=== PATIENT | female | born 1995 | race Caucasian/White ===

== ENCOUNTER → 2019-07-13 11:09 | Outpatient (CLI) | payer OTHER, SELFPAY ==
--- NOTE | 2019-07-13 11:12 | DI.US.S_ITS ---
PROCEDURE: US OB >= 14 WEEKS FETUS INDICATIONS: ANATOMY OUTSIDE/PRIOR DATING DATA: Last menstrual period (LMP): 02/17/19. LMP-based estimated date of delivery (NNAMDI): 11/24/19 First dating scan (date and location): 07/13/19. Estimated date of delivery (NNAMDI) from first dating scan: 12/18/19. TECHNIQUE: Real-time scanning was performed of the fetus, with image documentation and biometric measurements. COMPARISON: None. FINDINGS: General: A single living intrauterine gestation is present. Presentation: Vertex. Placenta: Placental position is anterior, without previa. Amniotic fluid index: 10.5 cm, normal range is 5-24 cm. heart rate: 144 beats per minute. Maternal cervical canal: 3.1 cm long. Normal lower limit is 2.5 cm. biometrics: Biparietal diameter: 21 weeks 1 day Head circumference: 21 weeks 0 days Abdominal circumference: 21 weeks 4 days Femur length: 21 weeks 1 day Estimated gestational age from initial scan: not applicable. Composite gestational age from present scan: 21 weeks 2 days Estimated weight and percentile: 417 g; 70 percentile Measurement variability for biometric dating: +/- 7 days from 14 weeks to 15 weeks 6 days gestation, +/- 10 days from 16 weeks to 21 weeks 6 days gestation, +/- 2 weeks from 22 weeks to 27 weeks 6 days gestation, +/- 3 weeks for 28 weeks gestation or later. weight reference: 4500 g or EFW >90/95% is considered macrosomia or large for gestational age. EFW <10% is small for gestational age. EFW 5% or less is considered intra-uterine growth restriction. Anatomic survey: Neuro: Ventricles are non-dilated at less than 10 mm. Cisterna magna is normal at 3-11 mm. Cerebellum is normal in size and morphology. Nuchal skin fold: Normal at less than 6 mm between 14-21 weeks gestational age. Face: Suboptimally visualized. Spine: No evidence for spina bifida. Heart: 4-chambered heart is present, with normal ventricular outflow tracts. Diaphragm: Diaphragm is intact. Stomach: Left-sided stomach is present. Kidneys: No hydronephrosis. Normal is less than 5 mm in 2nd trimester, less than 7 mm in 3rd trimester. Cord: 3-vessel cord has orthotopic insertion. Bladder: Normal in size. Extremities: All 4 extremities identified. IMPRESSION: 1. Single living IUP with mean composite gestational age of 21 weeks 2 days corresponding to ultrasound NNAMDI of 12/01/19. 2. face not well visualized; otherwise normal anatomy. Followup recommended. Dictated by: Angel GRECO Interpreted: Hal Christianson MD on 07/13/2019 at 12:05 Approved by: Hal Christianson M.D. on 07/13/2019 at 15:56
== END ==
PROVIDERS: Referring Provider Obstetrics & Gynecology; Visit Provider Obstetrics & Gynecology
DX: Z34.82 Encounter for supervision of other normal pregnancy, second trimester (principal); Z3A.21 21 weeks gestation of pregnancy
CPT/HCPCS: 76811

== ENCOUNTER → 2019-07-27 09:19 | Outpatient (CLI) | payer OTHER, SELFPAY ==
--- NOTE | 2019-07-27 09:21 | DI.US.S_ITS ---
PROCEDURE: US OB FOLLOW UP INDICATIONS: F/U FACE OUTSIDE/PRIOR DATING DATA: Last menstrual period (LMP): 02/17/19. LMP-based estimated date of delivery (NNAMDI): 11/24/19. First dating scan (date and location): 07/13/19. Estimated date of delivery (NNAMDI) from first dating scan: 11/21/19. TECHNIQUE: Real-time scanning was performed of the fetus, with image documentation. Endovaginal scanning: Not performed COMPARISON: None. FINDINGS: A single living intrauterine gestation is present. Presentation: Vertex Placenta: Placental position is anterior, without previa. Amniotic fluid index: 17.4 cm, normal range is 5-24 cm. heart rate: 149 beats per minute. Maternal cervical canal: 3.3 cm long. Normal lower limit is 2.5 cm. Estimated gestational age from initial scan: 23 weeks 2 days. face, profile, nose/lips are visualized and is within normal limits. IMPRESSION: Single live intrauterine with fetus in vertex presentation. Normal mammogram medically. face/profile/nose/lips are visualized and are within normal limits. Dictated by: Ke Oshea M.D. on 07/27/2019 at 10:00 Approved by: Ke Oshea M.D. on 07/27/2019 at 10:02
== END ==
PROVIDERS: Referring Provider Obstetrics & Gynecology; Visit Provider Obstetrics & Gynecology
DX: Z36.2 Encounter for other antenatal screening follow-up (principal); Z3A.23 23 weeks gestation of pregnancy
CPT/HCPCS: 76816

== ENCOUNTER → 2019-08-31 08:51 | Outpatient (CLI) | payer OTHER, SELFPAY ==
[2019-08-31 11:00] LABS: Add Manual Diff / Slide Review NO; Basophils Absolute Auto 0 /uL (0-100); Basophils Percent Auto 0.4 % (0-2); Eosinophils Absolute Auto 200 /uL (0-450); Eosinophils Percent Auto 1.7 % (2-4); Hematocrit 35.7 % (36-46); Hemoglobin 12.1 g/dL (12.0-16.0); Lymphocytes Absolute Auto 1600 /uL (1100-4500); Lymphocytes Percent Auto 15.3 % (25-40); Mean Corpuscular HGB Conc 33.9 % (30-36); Mean Corpuscular Hemoglobin 31.4 PG (26-34); Mean Corpuscular Volume 92.5 fL (80-100); Monocytes Absolute Auto 500 /uL (0-900); Monocytes Percent Auto 5.1 % (3-14); Neutrophils Absolute Auto 7900 /uL (1500-7000); Neutrophils Percent Auto 77.5 % (50-75); Platelet Count 239 X10^3/uL (150-400); Red Blood Cell Count 3.86 X10^6/uL (4.0-5.2); Red Cell Distribution Width 13.1 % (11.6-14.8); White Blood Cell Count 10.2 X10^3/uL (4.5-11.0)
[2019-08-31 11:24] LABS: Creatinine Urine Random 43.2 mg/dL; Protein (Total) Urine Random 11 mg/dL (0-12); Protein Creatinine Ratio Urine 0.25 GRAM/24H
[2019-08-31 11:31] LABS: Aspartate Aminotransferase 20 IU/L (14-36); BUN Creatinine Ratio 13.5 (6-22); Blood Urea Nitrogen 7 mg/dL (7-17); Estimated Glomerular Filt Rate > 60.0 mL/min (>60); GTT (PREG) 1 Hour PP 50gm Dose 128 mg/dL (76-139); Uric Acid 4.9 mg/dL (2.5-6.2)
== END ==
PROVIDERS: Referring Provider Obstetrics & Gynecology; Visit Provider Obstetrics & Gynecology
DX: Z34.02 Encounter for supervision of normal first pregnancy, second trimester (principal); Z3A.26 26 weeks gestation of pregnancy
CPT/HCPCS: 82570; 82950; 84156; 84450; 84550; 85025

== ENCOUNTER → 2019-10-21 14:01 | Outpatient (CLI) | payer OTHER, SELFPAY ==
[2019-10-22 10:14] LABS: Strep Grp B PCR NEG for Grp B Strep
== END ==
PROVIDERS: Visit Provider Obstetrics & Gynecology
DX: Z34.03 Encounter for supervision of normal first pregnancy, third trimester (principal); Z3A.35 35 weeks gestation of pregnancy
CPT/HCPCS: 87653

== ENCOUNTER → 2019-10-28 10:41 | Outpatient (CLI) | payer OTHER, SELFPAY ==
[2019-10-28 12:36] LABS: Aspartate Aminotransferase 23 IU/L (14-36); BUN Creatinine Ratio 14.5 (6-22); Blood Urea Nitrogen 8 mg/dL (7-17); Estimated Glomerular Filt Rate > 60.0 mL/min (>60); Uric Acid 5.2 mg/dL (2.5-6.2)
[2019-10-28 12:40] LABS: Creatinine Urine Random 45.9 mg/dL; Protein (Total) Urine Random 11 mg/dL (0-12); Protein Creatinine Ratio Urine 0.23 GRAM/24H
[2019-10-28 12:46] LABS: Add Manual Diff / Slide Review NO; Basophils Absolute Auto 0 /uL (0-100); Basophils Percent Auto 0.3 % (0-2); Eosinophils Absolute Auto 200 /uL (0-450); Eosinophils Percent Auto 2.3 % (2-4); Hematocrit 36.9 % (36-46); Hemoglobin 12.4 g/dL (12.0-16.0); Lymphocytes Absolute Auto 1800 /uL (1100-4500); Mean Corpuscular HGB Conc 33.6 % (30-36); Mean Corpuscular Hemoglobin 30.7 PG (26-34); Mean Corpuscular Volume 91.4 fL (80-100); Monocytes Absolute Auto 600 /uL (0-900); Monocytes Percent Auto 6.5 % (3-14); Neutrophils Absolute Auto 7200 /uL (1500-7000); Neutrophils Percent Auto 72.9 % (50-75); Platelet Count 255 X10^3/uL (150-400); Red Blood Cell Count 4.04 X10^6/uL (4.0-5.2); Red Cell Distribution Width 13.9 % (11.6-14.8); White Blood Cell Count 9.9 X10^3/uL (4.5-11.0)
== END ==
PROVIDERS: Referring Provider Obstetrics & Gynecology; Visit Provider Obstetrics & Gynecology
DX: Z34.90 Encounter for supervision of normal pregnancy, unspecified, unspecified trimester (principal)
CPT/HCPCS: 36415; 82570; 84156; 84450; 84550; 85025

== ENCOUNTER 2019-11-04 12:21 | Outpatient (CLI) | payer OTHER, SELFPAY ==
[2019-11-04 13:16] LABS: Add Manual Diff / Slide Review NO; Basophils Absolute Auto 100 /uL (0-100); Basophils Percent Auto 0.5 % (0-2); Eosinophils Absolute Auto 200 /uL (0-450); Eosinophils Percent Auto 1.8 % (2-4); Hematocrit 33.7 % (36-46); Hemoglobin 11.7 g/dL (12.0-16.0); Lymphocytes Absolute Auto 1700 /uL (1100-4500); Lymphocytes Percent Auto 17.9 % (25-40); Mean Corpuscular HGB Conc 34.7 % (30-36); Mean Corpuscular Hemoglobin 31.5 PG (26-34); Mean Corpuscular Volume 90.6 fL (80-100); Monocytes Absolute Auto 600 /uL (0-900); Monocytes Percent Auto 6.4 % (3-14); Neutrophils Absolute Auto 6900 /uL (1500-7000); Neutrophils Percent Auto 73.4 % (50-75); Platelet Count 238 X10^3/uL (150-400); Red Blood Cell Count 3.72 X10^6/uL (4.0-5.2); Red Cell Distribution Width 13.3 % (11.6-14.8); White Blood Cell Count 9.4 X10^3/uL (4.5-11.0)
--- NOTE | 2019-11-04 13:22 | P.TNLD_ITS ---
Visit Information Visit Information Date of evaluation: 11/04/19 Primary OB Provider: Tayler Devine Reason for Evaluation: Yes non-stress test Comments/Additional reasons for admission: This patient is a 23yo @37+0 presenting for NST, PIH labs and monitoring after elevated BPs in clinic. Patient has had high BPs in clinic at prior visits that normalized on repeat, reports no PIH symptoms, and reports normotension at home, though in the past week these have beein more 120s-130s than 110s-120s. Discussed with patient in clinic gHTN vs PEC diagnosis. Vital Signs Vital Signs: 119-123/66-76, HR 87-95, T 36.3C [facility] Surgical History (Updated 06/29/19 @ 13:16 by Yue Garcia, LILIA) [place] teeth removed (Acute ~2011) Family History (Updated 06/29/19 @ 13:20 by Yue Garcia RN) Father Hypertension Myocardial infarction Mother No problems noted. Grandfather Pancreatic adenoma Cancer Grandmother No problems noted. Grandfather No problems noted. Grandmother No problems noted. 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: Yes (Aware) special ryder needs: No Smoking Status: Never smoker second hand exposure: No alcohol intake: former (pre- : social) substance use type: does not use Objective Labs Result Diagrams: 11/04/19 13:05 11/04/19 13:05 Labs: Laboratory Results - last 24 hr 11/04/19 13:05 WBC 9.4 RBC 3.72 L Hgb 11.7 L Hct 33.7 L MCV 90.6 MCH 31.5 MCHC 34.7 RDW 13.3 Plt Count 238 Neut % (Auto) 73.4 Lymph % (Auto) 17.9 L [place] % (Auto) 6.4 Eos % (Auto) 1.8 L Baso % (Auto) 0.5 Neut # (Auto) 6900 Lymph # (Auto) 1700 [place] # (Auto) 600 Eos # (Auto) 200 Baso # (Auto) 100 Evaluation Evaluation Baseline heart rate: 140 Variability: Moderate (11-25) monitor accelerations: Present monitor decelerations: Absent Uterine Contraction Intensity: Mild Category of Tracing: I Laboratory results: Laboratory Tests 11/04/19 13:05 WBC 9.4 RBC 3.72 L Hgb 11.7 L Hct 33.7 L MCV 90.6 MCH 31.5 MCHC 34.7 RDW 13.3 Plt Count 238 Neut % (Auto) 73.4 Lymph % (Auto) 17.9 L [place] % (Auto) 6.4 Eos % (Auto) 1.8 L Baso % (Auto) 0.5 Neut # (Auto) 6900 Lymph # (Auto) 1700 [place] # (Auto) 600 Eos # (Auto) 200 Baso # (Auto) 100 Diagnosis, Plan/Disposition Plan/Disposition Plan: This patient was normotensive in L&D, had normal PIH bloodwork, and had reassuring status. As urine test was significantly delayed and patient had negative urine dip in clinic, patient was discharged home with close BP monitoring, precautions, and plans to call patient with unexpectedly elevated urine protein. Urine P/C ratio 0.7 and multiple messages left with patient to return to L&D for BP monitoring and discussion of delivery. OB Disposition: home
[2019-11-04 13:24] LABS: Alanine Aminotransferase 14 IU/L (<35); Albumin 3.4 g/dL (3.5-5.0); Albumin Globulin Ratio 1.1 (1.0-2.8); Alkaline Phosphatase 232 U/L (38-126); Aspartate Aminotransferase 22 IU/L (14-36); BUN Creatinine Ratio 15.4 (6-22); Bilirubin Total 0.3 mg/dL (0.2-1.3); Blood Urea Nitrogen 8 mg/dL (7-17); Calcium 8.9 mg/dL (8.4-10.2); Carbon Dioxide 23 mmol/L (22-32); Chloride 105 mmol/L (98-107); Estimated Glomerular Filt Rate > 60.0 mL/min (>60); Globulin 3.2 g/dL (1.7-4.1); Glucose 69 mg/dL (70-100); HEMOLYSIS < 15 (0-50); Lactate Dehydrogenase 413 U/L (313-618); Potassium 3.7 mmol/L (3.4-5.1); Sodium 134 mmol/L (137-145); Total Protein 6.6 g/dL (6.3-8.2); Uric Acid 4.9 mg/dL (2.5-6.2)
[2019-11-04 14:27] LABS: Creatinine Urine Random 17.1 mg/dL; Protein (Total) Urine Random 12 mg/dL (0-12)
== END 2019-11-04 13:55 | disposition home or self-care (01) ==
LOC: LABOR 13:23 → OB 11-07 11:00
PROVIDERS: Referring Provider Obstetrics & Gynecology; Visit Provider Obstetrics & Gynecology
DX: O26.893 Other specified pregnancy related conditions, third trimester (principal); R03.0 Elevated blood-pressure reading, without diagnosis of hypertension; Z3A.37 37 weeks gestation of pregnancy
CPT/HCPCS: 36415; 59025; 80053; 82570; 83615; 84156; 84550; 85025; G0378; G0379

== ENCOUNTER 2019-11-05 12:45 | Outpatient (CLI) | payer OTHER, SELFPAY ==
[2019-11-05 13:41] LABS: Add Manual Diff / Slide Review NO; Basophils Absolute Auto 100 /uL (0-100); Basophils Percent Auto 0.5 % (0-2); Eosinophils Absolute Auto 200 /uL (0-450); Eosinophils Percent Auto 1.6 % (2-4); Hematocrit 34.6 % (36-46); Hemoglobin 11.7 g/dL (12.0-16.0); Lymphocytes Absolute Auto 1900 /uL (1100-4500); Mean Corpuscular HGB Conc 33.9 % (30-36); Mean Corpuscular Hemoglobin 30.5 PG (26-34); Mean Corpuscular Volume 90.1 fL (80-100); Monocytes Absolute Auto 700 /uL (0-900); Neutrophils Absolute Auto 8500 /uL (1500-7000); Neutrophils Percent Auto 74.9 % (50-75); Platelet Count 247 X10^3/uL (150-400); Red Blood Cell Count 3.83 X10^6/uL (4.0-5.2); Red Cell Distribution Width 13.6 % (11.6-14.8); White Blood Cell Count 11.3 X10^3/uL (4.5-11.0)
--- NOTE | 2019-11-05 13:45 | PM.OBTRLD ---
Visit Information Visit Information Date of evaluation: 11/05/19 Primary OB Provider: Tayler Devine Reason for Evaluation: Yes non-stress test Comments/Additional reasons for admission: This patient is a 23yo @37+1 with a diagnosis of preeclampsia without severe features, presenting for BP check, repeat labs, and evaluation. She reports feeling well today with no headaches, visual changes, RUQ pain, malaise, nausea, vomiting, decreased movement, contractions, vaginal bleeding, loss of fluid, or any other complaints. She reports minimal leg swelling since her last evaluation, and no hand and face swelling. Vital Signs Vital Signs: BPs 123-135/72-80, HR 90s, afebrile [facility] Surgical History [place] teeth removed (Acute ~2011) Family History Father Hypertension Myocardial infarction Mother No problems noted. Grandfather Pancreatic adenoma Cancer Grandmother No problems noted. Grandfather No problems noted. Grandmother No problems noted. 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: Yes (Aware) special ryder needs: No Smoking Status: Never smoker second hand exposure: No alcohol intake: former (pre- : social) substance use type: does not use Review of Systems Constitutional Constitutional: Reports system reviewed and no additional complaints, except as documented Cardiovascular Cardiovascular: Reports system reviewed and no additional complaints, except as documented Respiratory Respiratory: Reports system reviewed and no additional complaints, except as documented Gastrointestinal Gastrointestinal: Reports system reviewed and no additional complaints, except as documented Genitourinary Genitourinary: Reports system reviewed and no additional complaints, except as documented Neurologic Neurologic: Reports system reviewed and no additional complaints, except as documented Hematologic/Lymphatic Hematologic/Lymphatic: Reports system reviewed and no additional complaints, except as documented Exam Const General: cooperative, healthy appearing, comfortable and well developed Nutritional Appearance: average body habitus Orientation: alert, awake and oriented x3 Resp Effort & Inspection: normal respiratory effort Auscultation: clear to auscultation bilaterally Cardio Rate: regular rate Rhythm: regular rhythm GI Palpation: soft and No tender External Female Exam: normal external appearance Extrem General: normal to inspection and no pedal edema Objective Labs Result Diagrams: 11/05/19 13:24 11/05/19 13:24 Evaluation Evaluation Baseline heart rate: 130 Variability: Moderate (11-25) monitor accelerations: Present monitor decelerations: Absent Contraction Frequency (minutes): 3 Category of Tracing: I Cervical dilation (cm): 3 Cervical effacement (%): 80 station: -2 Diagnosis, Plan/Disposition Plan/Disposition Plan: This patient is normotensive today on L&D and 120s/80s at home, though she is in the upper end of her range. Her labs are stable, and she is asymptomatic and otherwise well appearing with reassuring testing. We discussed that she meets diagnostic criteria for preeclampsia without severe features, as she has had two blood pressures over 140/90 over 2 separate visits and newly elevated urine protein. We discussed that the recommendation with this diagnosis is for induction after 37 weeks, and she is 37+1. However, coronavirus related illness has meant that the labor and delivery unit has acutely very low staffing, making inductions more fraught with potential for lack of staff to respond to intolerance of labor in a timely fashion. Given this, we discussed that our options today are induction today with potential for unsafe conditions, vs. discharge with close home BP and symptom monitoring and plan for induction of labor within 2 days. Given the patient's overall evaluation and current conditions on the labor floor, I recommended this option. We discussed the risk of worsening preeclampsia and precautionary symptoms, and the patient and her partner vocalized understanding. We also discussed labor precautions given her favorable cervical exam. A covid19 nasal swab was collected given that the patient will be induced within 72 hours. All options were discussed with the patient, and they were encouraged to ask questions, which were answered. The patient and her partner were encouraged to call the call center line or come in with any new symptoms, questions, or concerns, and will come directly to the hospital if they are uncertain what to do. OB Disposition: home
[2019-11-05 13:54] LABS: Aspartate Aminotransferase 25 IU/L (14-36); Blood Urea Nitrogen 8 mg/dL (7-17); Estimated Glomerular Filt Rate > 60.0 mL/min (>60); Uric Acid 5.7 mg/dL (2.5-6.2)
[2019-11-05 14:31] LABS: Creatinine Urine Random 20.7 mg/dL; Protein (Total) Urine Random 13 mg/dL (0-12); Protein Creatinine Ratio Urine 0.62 GRAM/24H
[2019-11-05 15:18] LABS: COVID19 -Nasal RAPID Negative (Negative)
== END 2019-11-05 14:10 | disposition home or self-care (01) ==
LOC: LABOR 14:58 → OB 11-07 11:00
PROVIDERS: Referring Provider Obstetrics & Gynecology; Visit Provider Obstetrics & Gynecology
DX: O14.03 Mild to moderate pre-eclampsia, third trimester (principal); Z3A.37 37 weeks gestation of pregnancy
CPT/HCPCS: 59025; 76815; 82570; 84156; 84450; 84550; 85025; 87635; G0378; G0379

== ENCOUNTER 2019-11-07 16:02 | Outpatient (CLI) | payer OTHER, SELFPAY ==
[2019-11-07 16:59] LABS: Add Manual Diff / Slide Review NO; Basophils Absolute Auto 100 /uL (0-100); Basophils Percent Auto 1.3 % (0-2); Eosinophils Absolute Auto 200 /uL (0-450); Eosinophils Percent Auto 1.9 % (2-4); Hematocrit 35.4 % (36-46); Hemoglobin 12.1 g/dL (12.0-16.0); Lymphocytes Absolute Auto 2200 /uL (1100-4500); Lymphocytes Percent Auto 21.1 % (25-40); Mean Corpuscular HGB Conc 34.1 % (30-36); Mean Corpuscular Hemoglobin 30.9 PG (26-34); Mean Corpuscular Volume 90.6 fL (80-100); Monocytes Absolute Auto 800 /uL (0-900); Monocytes Percent Auto 7.2 % (3-14); Neutrophils Absolute Auto 7200 /uL (1500-7000); Neutrophils Percent Auto 68.5 % (50-75); Platelet Count 255 X10^3/uL (150-400); Red Blood Cell Count 3.91 X10^6/uL (4.0-5.2); Red Cell Distribution Width 13.6 % (11.6-14.8); White Blood Cell Count 10.5 X10^3/uL (4.5-11.0)
[2019-11-07 17:15] LABS: Aspartate Aminotransferase 22 IU/L (14-36); BUN Creatinine Ratio 9.5 (6-22); Blood Urea Nitrogen 6 mg/dL (7-17); Estimated Glomerular Filt Rate > 60.0 mL/min (>60); Uric Acid 5.4 mg/dL (2.5-6.2)
--- NOTE | 2019-11-07 17:27 | PM.OBTRLD ---
Visit Information Visit Information Date of evaluation: 11/07/19 Primary OB Provider: Tayler Devine Reason for Evaluation: Yes non-stress test Comments/Additional reasons for admission: This patient is a 23yo @37+3 with preeclampsia without severe features, presenting for repeat labs, BP monitoring, and testing in anticipation of an induction in 12 hours, when conditions on the labor floor allow. She reports feeling well with no GARZA, visual changes, chest pain, RUQ pain, contractions, decreased movement, or any other complaints. Vital Signs Vital Signs: 115-134/58-81, HR 80-92 [facility] Surgical History [place] teeth removed (Acute ~2011) Family History Father Hypertension Myocardial infarction Mother No problems noted. Grandfather Pancreatic adenoma Cancer Grandmother No problems noted. Grandfather No problems noted. Grandmother No problems noted. 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: Yes (Aware) special ryder needs: No Smoking Status: Never smoker second hand exposure: No alcohol intake: former (pre- : social) substance use type: does not use Review of Systems Constitutional Constitutional: Reports system reviewed and no additional complaints, except as documented Cardiovascular Cardiovascular: Reports system reviewed and no additional complaints, except as documented Respiratory Respiratory: Reports system reviewed and no additional complaints, except as documented Gastrointestinal Gastrointestinal: Reports system reviewed and no additional complaints, except as documented Genitourinary Genitourinary: Reports system reviewed and no additional complaints, except as documented Musculoskeletal Musculoskeletal: Reports system reviewed and no additional complaints, except as documented Neurologic Neurologic: Reports system reviewed and no additional complaints, except as documented Exam Const General: cooperative, healthy appearing, comfortable and acute distress GI Palpation: soft and No tender Objective Labs Result Diagrams: 11/07/19 16:43 11/07/19 16:43 Labs: Laboratory Results - last 24 hr 11/07/19 11/07/19 16:43 16:43 WBC 10.5 RBC 3.91 L Hgb 12.1 Hct 35.4 L MCV 90.6 MCH 30.9 MCHC 34.1 RDW 13.6 Plt Count 255 Neut % (Auto) 68.5 Lymph % (Auto) 21.1 L [place] % (Auto) 7.2 Eos % (Auto) 1.9 L Baso % (Auto) 1.3 Neut # (Auto) 7200 H Lymph # (Auto) 2200 [place] # (Auto) 800 Eos # (Auto) 200 Baso # (Auto) 100 BUN 6 L Creatinine 0.63 Estimated GFR > 60.0 BUN/Creatinine Ratio 9.5 Uric Acid 5.4 AST 22 Evaluation Evaluation Baseline heart rate: 140 Variability: Moderate (11-25) monitor accelerations: Present monitor decelerations: Absent Contraction Frequency (minutes): 3 Category of Tracing: I Laboratory results: Laboratory Tests 11/07/19 11/07/19 16:43 16:43 WBC 10.5 RBC 3.91 L Hgb 12.1 Hct 35.4 L MCV 90.6 MCH 30.9 MCHC 34.1 RDW 13.6 Plt Count 255 Neut % (Auto) 68.5 Lymph % (Auto) 21.1 L [place] % (Auto) 7.2 Eos % (Auto) 1.9 L Baso % (Auto) 1.3 Neut # (Auto) 7200 H Lymph # (Auto) 2200 [place] # (Auto) 800 Eos # (Auto) 200 Baso # (Auto) 100 BUN 6 L Creatinine 0.63 Estimated GFR > 60.0 BUN/Creatinine Ratio 9.5 Uric Acid 5.4 AST 22 Diagnosis, Plan/Disposition Plan/Disposition Plan: This patient is a 23yo @37+3 with preeclampsia without severe features, admitted for maternal and monitoring. The labor floor and nursing staff in the setting of covid are such that the patient is scheduled for induction with pitocin tomorrow AM, as she has a favorable cervix. She is largely normotensive with reassuring status and stable labs, and risks and benefits along with precautions for return were discussed. All questions were answered. OB Disposition: home
== END 2019-11-07 17:30 | disposition home or self-care (01) ==
LOC: LABOR 16:23 → OB 11-08 10:01
PROVIDERS: Referring Provider Obstetrics & Gynecology; Visit Provider Obstetrics & Gynecology
DX: O14.03 Mild to moderate pre-eclampsia, third trimester (principal); Z3A.37 37 weeks gestation of pregnancy
CPT/HCPCS: 36415; 59025; 76815; 84450; 84550; 85025; G0378; G0379

== ENCOUNTER 2019-11-08 07:26 | Inpatient (IN) | payer OTHER, SELFPAY ==
--- NOTE | 2019-11-08 08:03 | P.HPOB_ITS ---
OB HPI Date/Time Date of admission: 11/08/19 Date Patient Seen: 11/08/19 Time Patient Seen: 07:30 History of Present Condition Chief complaint: observation of labor : 1 Para: 0 Estimated Date of Delivery: 11/25/19 Estimated Gestational Age (weeks): 37 Narrative: Vandana Bell is a 23 year old @37+4 with preeclampsia without severe features, presenting for induction of labor with a favorable cervix. She denies headache, visual changes, chest pain, trouble breathing, RUQ pain, decreased movement, VB, or LOF. She reports intermittent contractions, though not consistent. She was diagnosed based on multiple BPs over 140/90 though she is largely normotensive, and newly elevated urine protein without any other lab abnormalities. Her had been otherwise uncomplicated, though she transferred care at [address] [facility] [place]. She denies any contributory medical or surgical history or PIH risk factors, though she recently reported that her mother had PIH with each of her four pregnancies. Indications Indication for induction OB: medical complication History of Present care: good care, number of visits (16) and pounds weight gain (51) Dating criteria: LMP confirmed by 1st trimester US Ultrasounds: normal 1st trimester US and normal mid trimester US Obstetrical complications: preeclampsia Medical complications: none Preadmission Labs Blood type: B (+) positive -: Antibody screen: negative, GBS status: negative, HBsAG: negative, HIV: negative and RPR/VDLR: negative -: Chlamydia screen: not detected and Gonorrhea screen: not detected -: Rubella: immune and Varicella: immune PAP: Normal Sequential screen: declined aneuploidy screening Urine: UC negative 1 hr GTT: 128 Evaluation Evaluation Baseline heart rate: 150 Variability: Average (6-10) monitor accelerations: Present monitor decelerations: Absent Contraction Frequency (minutes): 3 Category of Tracing: I Cervical dilation (cm): 3 Cervical effacement (%): 80 station: -1 PFS Surgical History [place] teeth removed (Acute ~2012) Family History Father Hypertension Myocardial infarction Mother No problems noted. Grandfather Pancreatic adenoma Cancer Grandmother No problems noted. Grandfather No problems noted. Grandmother No problems noted. 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: Yes (Aware) special ryder needs: No Smoking Status: Never smoker second hand exposure: No alcohol intake: former (pre- : social) substance use type: does not use Meds Home Medications and Allergies Home Medications Medication Instructions Recorded Confirmed Type prenat.vits,darrion,vim-[id number] 1 tab PO DAILY 06/28/19 06/28/19 History Allergies Allergy/AdvReac Type Severity Reaction Status Date / Time No Known Drug Allergies Allergy Verified 06/29/19 13:09 Review of Systems Constitutional Constitutional: Reports system reviewed and no additional complaints, except as documented Eyes Eyes: Reports system reviewed and no additional complaints, except as documented Cardiovascular Cardiovascular: Reports system reviewed and no additional complaints, except as documented Respiratory Respiratory: Reports system reviewed and no additional complaints, except as documented Gastrointestinal Gastrointestinal: Reports system reviewed and no additional complaints, except as documented Genitourinary Genitourinary: Reports system reviewed and no additional complaints, except as documented Musculoskeletal Musculoskeletal: Reports system reviewed and no additional complaints, except as documented Neurologic Neurologic: Reports system reviewed and no additional complaints, except as documented Exam Vital Signs (past 8 hours): 128/73, HR 76 Const General: cooperative, healthy appearing and comfortable Resp Effort & Inspection: normal respiratory effort Auscultation: clear to auscultation bilaterally Cardio Rate: regular rate Rhythm: regular rhythm GI Palpation: soft and No tender External Female Exam: normal external appearance Extrem General: normal to inspection Objective Labs Result Diagrams: 11/08/19 08:00 11/08/19 08:00 Assessment and Plan Assessment and Plan Assessment and Plan narrative: This patient presents for induction of labor for preeclampsia without severe features, already 3/80/-1 and clement q3min. Patient will be admitted for repeat PIH labs, pitocin per protocol, and routine intrapartum care. - PIH panel and T&S today - cEFM, toco for now, short bouts of ambulation if status reassuring - anticipate AROM later this AM - Epidural on demand
[2019-11-08 08:15] LABS: Add Manual Diff / Slide Review NO; Basophils Absolute Auto 100 /uL (0-100); Basophils Percent Auto 0.6 % (0-2); Eosinophils Absolute Auto 200 /uL (0-450); Eosinophils Percent Auto 2.6 % (2-4); Hematocrit 35.8 % (36-46); Hemoglobin 12.2 g/dL (12.0-16.0); Lymphocytes Absolute Auto 1600 /uL (1100-4500); Lymphocytes Percent Auto 17.9 % (25-40); Mean Corpuscular HGB Conc 34.1 % (30-36); Mean Corpuscular Hemoglobin 31.1 PG (26-34); Mean Corpuscular Volume 91.1 fL (80-100); Monocytes Absolute Auto 600 /uL (0-900); Monocytes Percent Auto 6.9 % (3-14); Neutrophils Absolute Auto 6400 /uL (1500-7000); Platelet Count 247 X10^3/uL (150-400); Red Blood Cell Count 3.93 X10^6/uL (4.0-5.2); Red Cell Distribution Width 13.9 % (11.6-14.8); White Blood Cell Count 8.9 X10^3/uL (4.5-11.0)
[2019-11-08] MEDS: LACTATED RINGERS 1,000 ML 100 ML IV ×6 (08:21→23:00)
[2019-11-08] MEDS: OXYTOCIN PREMIX 30 UNIT/500 ML PLAST..BAG IV (08:21)
[2019-11-08 08:24] LABS: Aspartate Aminotransferase 23 IU/L (14-36); BUN Creatinine Ratio 12.1 (6-22); Blood Urea Nitrogen 7 mg/dL (7-17); Estimated Glomerular Filt Rate > 60.0 mL/min (>60); Uric Acid 5.4 mg/dL (2.5-6.2)
[2019-11-08 10:03] VITALS: BP 125/68
--- NOTE | 2019-11-08 10:44 | PM.OBPNLAB ---
Date/Time Date Patient Seen: 11/08/19 Time Patient Seen: 10:44 Pain Control Pain control: tolerating well Pelvic Exam Dilation (cm): 3 Effacement (%): 100 station: -1 Amniotic membrane status: Ruptured (AROM, clear) Contractions Pitocin rate (mU/min): 3 Contraction frequency (min): 2 Status status: Category l Heart Rate Baseline: 150 Monitor Accelerations: Absent Monitor Decelerations: Absent Monitor Variability: Moderate Comments: Patient for fluid bolus, previously +accels Assessment and Plan Assessment: induction ongoing Plan: continuous present management
--- NOTE | 2019-11-08 16:45 | PM.OBPNLAB ---
Date/Time Date Patient Seen: 11/08/19 Time Patient Seen: 16:45 Pain Control Pain control: epidural Pelvic Exam Dilation (cm): 10 Effacement (%): 100 station: +1 Amniotic membrane status: Ruptured (AROM, clear) Comments: EFW 7#8 Contractions Pitocin rate (mU/min): 2 Contraction frequency (min): 2 Contraction pattern: Regular Status status: Category l Heart Rate Baseline: 130 Monitor Accelerations: Present Monitor Decelerations: Absent Monitor Variability: Moderate Assessment and Plan Plan: continuous present management Comments: Patient to begin pushing.
--- NOTE | 2019-11-08 18:31 | PM.OBPNLAB ---
Date/Time Date Patient Seen: 11/08/19 Time Patient Seen: 18:31 Pain Control Pain control: epidural Pelvic Exam Dilation (cm): 10 Effacement (%): 100 station: +2 Amniotic membrane status: Ruptured (AROM, clear) Comments: Direct OP presentation, attempts to turn to OA unsuccessful. Contractions Pitocin rate (mU/min): 5 Contraction frequency (min): 5 Contraction pattern: Regular Status Heart Rate Baseline: 130 Monitor Accelerations: Present Monitor Decelerations: Early Monitor Variability: Moderate Assessment and Plan Plan: continuous present management
--- NOTE | 2019-11-08 20:22 | PM.OBPNLAB ---
Date/Time Date Patient Seen: 11/08/19 Time Patient Seen: 20:22 Pain Control Pain control: epidural Pelvic Exam Dilation (cm): 10 Effacement (%): 100 station: +2 Amniotic membrane status: Ruptured (AROM, clear) Contractions Pitocin rate (mU/min): 0 Contraction frequency (min): 3 Contraction pattern: Regular Status status: Category l Heart Rate Baseline: 130 Monitor Accelerations: Present Monitor Decelerations: Absent Comments: cat 2 with minimal variability prior to turning off pitocin, rotating to right side and fluid bolus Assessment and Plan Assessment: active labor Comments: This patient is a 23yo P0 who has been in the second stage of labor for 4 hours with direct OP presentation, and though good maternal effort remains, the patient is fatigued. We discussed the options of vacuum assisted delivery and section. We discussed that the risks of vacuum assisted vaginal delivery are cephalohematoma or subgaleal bleed, increased risk of shoulder dystocia, and increased risk of 3rd or 4th degree perineal tearing. We discussed that if the vacuum assisted delivery does not succeed, we would proceed to primary section, and discussed that the risks of c section in the second stage including damage to bowel and bladder, increased risk of hemorrhage, and increased risk of infection, for which she would receive antibiotics. The patient vocalized understanding of the above, and would like to proceed with vacuum assisted vaginal delivery. The OR crew and anesthesiologist will be called in on standby to assist in the event of emergent section.
--- NOTE | 2019-11-08 21:07 | PM.PREOP ---
Pre-operative Note COVID-19 COVID-19 status: Negative Result date/Date tested (Pos, Neg/Pending): 11/05/19 Interval Note History & Physical reviewed/Exam performed by Physician: Yes Changes to H&P: No
[2019-11-08] MEDS: CEFAZOLIN 2 GM/100 ML FROZ.PIGGY IV (21:25)
--- NOTE | 2019-11-08 21:42 | SUR.OPER ---
Supine on Padded OR bed, head on pillow, safety belt at thigh, arms secured on padded arm boards at <90 degrees abduction. Bump under right buttock. Legs uncrossed with pillow under knees, gel pad to heels, tape over blanket to lower legs.
[2019-11-08] MEDS: AZITHROMYCIN 500 MG in DEXTROSE 5% IN WATER 250 ML IV (22:17)
--- NOTE | 2019-11-08 22:18 | SUR.OPER ---
viable baby boy born at 2145, placenta delivered at 2150, 8/9, weight 6lb 6oz
[2019-11-08 22:39] VITALS: BP 103/51; PULSE 113; RESP 11; TEMP 36.3; O2SAT 100
--- NOTE | 2019-11-08 22:43 | P.OP_ITS ---
Operative Date/Time/Diagnoses Date of procedure: 11/08/19 Time of procedure: 21:30 Pre-op diagnosis: arrest of descent in the second stage Post-op diagnosis: same Procedure & Clinicians Procedure: primary section Same procedure as scheduled: Yes Indications: prolonged second stage, failed vacuum assisted vaginal delivery Surgeon: Tayler Devine Shuttle Truck Driver: Gina Sheth Anesthesia Type: Epidural Operative Notes Findings: Normal uterus, tubes, and ovaries. Male infant in OP, cephalic presentation. Body cord x1. Apgars 8+9, weight 6#7. Closure Type: primary Specimen(s): none sent Applied: catheter Estimated Blood Loss (mL): 800 Procedure in detail: EBL: 800ccs Fluids:2000ccs UOP: 400ccs yellow urine Findings: Male in cephalic presentation, Apgars 8+9, weight 6#7, normal uterus, tubes, ovaries. Procedures: The patient was consented for vacuum assisted vaginal delivery, as discussed in prior labor notes. She was placed in the dorsal lithotomy position in the labor room, the james catheter was removed, and the position was assessed and confirmed to be 2+ station, direct OP presentation, EFW between 7# and 7#8. The maternal pelvis was thought to be adequate. A Kiwi vacuum was placed 2cm anterior to the posterior fontanelle, and suction increased to the green with the first contraction. Traction was applied with each push, with slight movement of the vertex. The Kiwi was deflated until the next contraction, when the same procedure was repeated. No descent was noted with that contraction, and the attempt was aborted and the patient taken for section. The patient was taken to the operating room where epidural anesthesia was bolused. She was prepped and draped in the normal sterile fashion in the dorsal supine position with a leftward tilt, including betadine vaginal prep. A Pfannenstiel skin incision was made with a scalpel and carried through to the underlying layer of fascia. The fascia was incised in the midline and the incision extended laterally with Jacques scissors. The inferior aspect of this incision was grasped with Juany clamps, elevated. and the underlying rectus muscles dissected off bluntly. Attention was then turned to the superior aspect of this incision which, in a similar fashion, was grasped, tented up with the Juany clamps, and the rest rectus muscles dissected off bluntly. The rectus muscles were then in the midline, and the peritoneum identified, tented up, and entered sharply with Metzenbaum scissors. The peritoneal incision was extended superiorly and inferiorly with good visualization of the bladder. The bladder blade was inserted and the vesicao uterine peritoneum identified, grasped with pickups, and entered sharply with the Metzenbaum scissors. This incision was extended laterally, and the bladder flap created digitally. The bladder blade was then reinserted and the lower uterine segment incised in transverse fashion with the scalpel. The uterine incision was bluntly extended laterally. The bladder blade was removed, and the 's head delivered with help from a push up from below. The vertex was impacted into the pubic symphysis, and difficulty delivering required use of a soft cup vacuum placed anterior to the anterior fontanelle, as this was accessible given presentation. The cord was clamped and cut. The nose and mouth were suctioned as needed with a bulb syringe, and the was handed off to awaiting pediatricians. The placenta was then removed spontaneously, and the uterus was exteriorized and cleared of all clots and debris. There was no extension of the hysterotomy. The uterine incision was repaired with 1-0 chromic in a running, locked fashion and a 2nd layer of the same suture was used to obtain excellent hemostasis. The uterus was returned to the abdomen, and the gutters were cleared of all clots and debris. The bladder flap was repaired with 2-0 vicryl in a running fashion. The peritoneum was closed with 3-0 Vicryl, and the fascia reapproximated with 0 Vicryl in a running fashion. The subcutaneous layer was placed with 3 0 Vicryl in an interrupted fashion and the skin was closed with 4-0 biosyn in a running fashion. The patient tolerated the procedure well sponge lap and needle counts were correct x2. 2 g of Ancef and 500mg azithromycin were given at commencement of the case. The patient was taken to the recovery room in stable condition. Complications: none Post-operative Condition: stable Disposition: PACU Plan for aftercare: Routine postoperative care.
[2019-11-08 22:44] VITALS: BP 102/54; PULSE 114; RESP 12; O2SAT 98
--- NOTE | 2019-11-08 22:44 | SUR.PHASEI ---
Dr. Devine and Dr. Michel notified HR 118, Give 1L LR bolus per Dr. Michel. Bolus infusing.
[2019-11-08 22:49] VITALS: BP 107/58; PULSE 112; RESP 11; O2SAT 100
[2019-11-08 22:52] VITALS: BP 102/69; PULSE 119; RESP 12; TEMP 36.2; O2SAT 100
[2019-11-08 23:00] VITALS: BP 115/65; PULSE 119; RESP 14; O2SAT 100
--- NOTE | 2019-11-08 23:00 | SUR.PHASEI ---
Report called to Sheri.
--- NOTE | 2019-11-08 23:12 | SUR.PHASEI ---
Patient transferred to the center. Report given to Sheri. Scant shadow drainage to abdominal dressing. Scant vaginal bleeding. Fundus checked with RN. IV patient, finishing bolus. Patient denied pain. Michaud patent.
[2019-11-09] MEDS: KETOROLAC 30 MG/ML VIAL IV ×3 (04:02→17:11)
[2019-11-09 06:44] LABS: Add Manual Diff / Slide Review NO; Basophils Absolute Auto 100 /uL (0-100); Basophils Percent Auto 0.6 % (0-2); Eosinophils Absolute Auto 100 /uL (0-450); Eosinophils Percent Auto 0.6 % (2-4); Hematocrit 28.2 % (36-46); Hemoglobin 9.5 g/dL (12.0-16.0); Lymphocytes Absolute Auto 1700 /uL (1100-4500); Lymphocytes Percent Auto 14.7 % (25-40); Mean Corpuscular HGB Conc 33.6 % (30-36); Mean Corpuscular Hemoglobin 30.7 PG (26-34); Mean Corpuscular Volume 91.3 fL (80-100); Monocytes Absolute Auto 800 /uL (0-900); Monocytes Percent Auto 7.3 % (3-14); Neutrophils Absolute Auto 8800 /uL (1500-7000); Neutrophils Percent Auto 76.8 % (50-75); Platelet Count 188 X10^3/uL (150-400); Red Blood Cell Count 3.09 X10^6/uL (4.0-5.2); Red Cell Distribution Width 13.9 % (11.6-14.8); White Blood Cell Count 11.4 X10^3/uL (4.5-11.0)
--- NOTE | 2019-11-09 08:32 | P.PNOB_ITS ---
Subjective - OB Subjective Patient comments: no complaints, pain well controlled and tolerating diet baby status: doing well feeding status: exclusively breast feeding Date Patient Seen: 11/09/19 Time Patient Seen: 08:32 Interval history: This patient is a 23yo now P1 POD#1 s/p pCS after 4 hour 2nd stage and failed vacuum assisted vaginal delivery. The patient's immediate pos top tachycardia has resolved, and she reports feeling well this AM with minimal incisional pain, no GARZA, visual changes, chest pain, or trouble breathing, and no other complaints. Tolerated clear liquids last night, about to try regular breakfast. Exam Vital Signs (past 8 hours): 110/60, HR 90s, T 37.1 C Oxygen Delivery Method Room Air Resp Effort & Inspection: normal respiratory effort Auscultation: clear to auscultation bilaterally Cardio Rate: regular rate Rhythm: regular rhythm GI Inspection: distended (soft, tympanic) Palpation: soft and No tender Skin General: no rashes or lesions noted Extrem General: normal to inspection Objective Labs Result Diagrams: 11/09/19 06:20 11/08/19 08:00 Labs: Laboratory Results - last 24 hr 11/08/19 11/09/19 08:00 06:20 WBC 11.4 H RBC 3.09 L Hgb 9.5 L Hct 28.2 L MCV 91.3 MCH 30.7 MCHC 33.6 RDW 13.9 Plt Count 188 Neut % (Auto) 76.8 H Lymph % (Auto) 14.7 L [place] % (Auto) 7.3 Eos % (Auto) 0.6 L Baso % (Auto) 0.6 Neut # (Auto) 8800 H Lymph # (Auto) 1700 [place] # (Auto) 800 Eos # (Auto) 100 Baso # (Auto) 100 Blood Type B Positive Antibody Screen Negative Assessment & Plan Plan day: 1 plan OB: routine postop care Comments: This patient is POD#1 s/p primary section, recovering appropriately though with a large hgb drop. VS are normal this AM, and her lochia is mild, making ongoing blood loss unlikely. She will be for repeat CBC and iron supplementation tomorrow AM, with otherwise normal postoperative care. - VT this AM - Ambulation this AM - Regular diet this AM - Routine postop care Time Spent With Patient Time: Total time spent is greater than 50% in coordination of care (as d ocumented) at patient's floor/unit and/or counseling patient: Time with patient: 15-24 minutes
[2019-11-09] MEDS: DOCUSATE 250 MG CAPSULE PO (08:41)
[2019-11-09] MEDS: ACETAMINOPHEN 325 MG TABLET 650 MG PO (23:16)
[2019-11-09] MEDS: IBUPROFEN 600 MG TABLET PO (23:31)
[2019-11-10] MEDS: ACETAMINOPHEN 325 MG TABLET 650 MG PO ×2 (05:30→11:40)
[2019-11-10] MEDS: IBUPROFEN 600 MG TABLET PO ×2 (05:32→11:40)
[2019-11-10] MEDS: DOCUSATE 250 MG CAPSULE PO (08:17)
--- NOTE | 2019-11-10 09:54 | PM.OBPN.1 ---
Subjective - OB Subjective Patient comments: no complaints and pain well controlled baby status: doing well feeding status: exclusively breast feeding Narrative: This patient is a 23yo now P1 POD#2 s/p pCS in the setting of 2nd stage arrest and failed VAVD after IOL for preeclampsia without severe features. She reports feeling well today with no GARZA, visual changes, SOB, chest pain. She has good pain control, is ambulating, tolerating PO, voiding, passing flatus, and has mild lochia. Date Patient Seen: 11/10/19 Time Patient Seen: 09:50 Exam Vital Signs (past 8 hours): 115-138/62-75, HR 89-95, T 99.3F Oxygen Delivery Method Room Air Const General: cooperative, healthy appearing and comfortable Resp Effort & Inspection: normal respiratory effort Auscultation: clear to auscultation bilaterally Cardio Rate: regular rate Rhythm: regular rhythm GI Inspection: incision (old blood on aquacell) Palpation: soft (non distended) and No tender Extrem General: normal to inspection (trace pedal edema) Objective Labs Result Diagrams: 11/09/19 06:20 11/08/19 08:00 Assessment & Plan Plan day: 2 plan OB: routine postop care and discharge home Comments: This patient is recovering well, meeting postoperative goals with no clinical signs of infection, worsening PIH, or ongoing blood loss. Discussed hgb drop and patient to be discharged on iron supplementation, returns next week for an incision and BP check. Postop, , and PIH precautions discussed. Patient to continue home BPs 2-3x daily, call if elevated. Time Spent With Patient Time: Total time spent is greater than 50% in coordination of care (as documented) at patient's floor/unit and/or counseling patient: Time with patient: 15-24 minutes
--- NOTE | 2019-11-10 10:02 | P.DS_ITS ---
Discharge Providers Provider Date of admission: 11/08/19 07:26 Discharge Date: 11/10/19 Consults: 11/08/19 23:15 Consult to Industrial Engineering Technologist Routine Comment: Discharge provider: Tayler Devine MD Summary Hospital Course Date Patient Seen: 11/10/19 Time Patient Seen: 09:50 Procedures: primary CS, induction of labor for preeclampsia without severe features Hospital Course: This patient presented for induction of labor for preeclampsia without severe features, and was induced with pitocin. She progressed rapidly to fully dilated and underwent a 4 hour second stage, complicated by persistent OP presentation resistant to converting to OA despite attempted vertex rotation and patient position changes. After a failed attempt at VAVD, the patient was taken for primary section. This was otherwise uncomplicated, and her recovery was uneventful, with only occasional elevated BPs and none over 140/90. The patient was discharged with precautions and clinic follow up on POD#2. Peripartum Data Delivery Method: Section complications: none [place] Justin: Gender: Male Disposition of : home Status at Discharge Cognitive/behavioral status at discharge: oriented Functional status at discharge: independent ambulation Time Spent with Patient Time attestation: Total time spent providing and/or coordinating discharge services: Time spent: Greater than 30 minutes Objective Labs Result Diagrams: 11/09/19 06:20 11/08/19 08:00 Exam Vital Signs (past 8 hours): Oxygen Delivery Method Room Air Discharge Plan Discharge Plan Patient Disposition: Home Discharge orders & Medications Prescriptions: New oxycodone 5 mg tablet 5 mg PO Q6H PRN (Reason: pain) Qty: 14 RF: 0 acetaminophen 325 mg tablet 325 mg PO Q6H PRN (Reason: section) Qty: 30 RF: 0 docusate sodium [Colace] 100 mg capsule 100 mg PO BID Qty: 60 RF: 0 ferrous gluconate 324 mg (37.5 mg iron) tablet 324 mg PO DAILY Qty: 30 RF: 0 Continued prenat.vits,darrion,ndl-devi-adsbv Tablet 1 tab PO DAILY RF: 0 Follow up/Referrals: Tayler Devine MD [Physician] - 1 Week (Follow up with Dr. Devine for a 1 week incision check on Thursday11/16/2019 at 9:00 AM at [facility] ) Diet/Activity/Treatments Diet: Regular Activity: Nothing in the vagina for 6 weeks. No lifting more than 10 lbs for 6 weeks. If you have headaches, visual changes, chest pain, SOB, increasing bleeding or abnormal discharge per vagina or incision, nausea, vomiting, fevers, chills, or any other symptoms, call or come to the ED. Visit Report/Discharge Packet Instructions: DI for Visit Report Forms: Patient Portal/API, Stroke Signs & Symptoms Discharges patient from system. Discharge Date/Time: 11/10/19 12:25
[2019-11-10 10:03] VITALS: BP 138/75; PULSE 89; RESP 18; TEMP 37.4
== END 2019-11-10 12:25 | disposition home or self-care (01) | DRG 787 ==
PROVIDERS: Admitting Provider Obstetrics & Gynecology; Referring Provider Obstetrics & Gynecology; Visit Provider Obstetrics & Gynecology
PROC: 10D00Z1 Extraction of Products of Conception, Low, Open Approach (ICD-10-PCS; CPT 59514; principal; 2019-11-08 21:10)
DX: O14.03 Mild to moderate pre-eclampsia, third trimester (principal); D62 Acute posthemorrhagic anemia; Z3A.37 37 weeks gestation of pregnancy; O32.4XX0 Maternal care for high head at term, not applicable or unspecified; Z37.0 Single live birth; O66.5 Attempted application of vacuum extractor and forceps; R00.0 Tachycardia, unspecified
CPT/HCPCS: 01967; 01968; 36415; 59025; 59050; 59514; 59515; 76815; 84450; 84550; 85025; 86850; 86900; 86901; G0379; J0690; J1885; J2274; J2405; J2590; J3010

== ENCOUNTER 2021-12-09 08:46 | Emergency (ER) | payer OTHER, SELFPAY ==
[2021-12-09 08:46] VITALS: BP 165/94; PULSE 117; RESP 20; TEMP 37; O2SAT 99; BMI 20.1
[2021-12-09 08:57] VITALS: BP 165/94; PULSE 121; O2SAT 99
--- NOTE | 2021-12-09 08:58 | ED.PREGNANCY ---
HPI - General Chief complaint: Vaginal Bleeding Stated complaint: 10 wks started bleeding Time Seen by Provider: 12/09/21 08:55 History of Present Illness HPI Narrative: 26-year-old female nonsmoker without chronic medical problems is a at about 10 weeks who presents with vaginal bleeding this morning. She had been in her normal state of health until she felt a wetness and thought maybe she had urinated herself. When she checked she found it was blood and presents here for evaluation. She denies any cramping or pain nor the passage of clots. She is not dizzy nor weak or lightheaded but admittedly feels quite anxious. She denies any chest pain or shortness of breath. She is had no fever or chills. She denies abdominal pain or constipation. She denies the leakage of fluid, dysuria, frequency or urgency. She has yet to see her OB provider for this but plans to see Dr. Chicas locally. Blood type is B+ Related Data Home Medications Medication Instructions Recorded Confirmed prenat.vits,darrion,bkt-rnux-pipln 1 tab PO DAILY 06/28/19 12/02/21 Allergies Allergy/AdvReac Type Severity Reaction Status Date / Time No Known Drug Allergies Allergy Verified 12/02/21 15:39 Review of Systems Review of Systems Narrative: GENERAL: Denies chills, fatigue, malaise, fever, sweats. HEENT: Denies sinus pain, ear pain, sore throat, difficulty swallowing, dizziness. RESPIRATORY: Denies dyspnea, cough, wheezing, hemoptysis, sputum. CARDIOVASCULAR: Denies chest pain, palpitations, orthopnea, edema, GASTROINTESTINAL: See HPI : See HPI MUSCULOSKELETAL: denies weakness, joint pain, or bony pain SKIN: Denies rash, skin lesions, or other NEUROLOGIC: Denies weakness, headache, numbness, change in speech, confusion, seizures, incoordination. PSYCHIATRIC: No concerning psychosocial issues. 12 point review of systems is negative except for those stated above Exam Narrative Exam Narrative: GENERAL: [26] year old patient appears stated age. Well-developed patient, in mild distress. Anxious HEAD: Atraumatic. Normocephalic. EYES: Pupils equal round and reactive. Extraocular motions intact. No scleral icterus. No injection or drainage. ENT: Nose without bleeding, purulent drainage. Throat without erythema, tonsillar hypertrophy or exudate. Airway patent. NECK: Trachea midline. Non tender CARDIOVASCULAR: Tachycardic but regular rhythm without murmurs, gallops, or rubs. RESPIRATORY: Clear to auscultation. Breath sounds equal bilaterally. No wheezes, rales, or rhonchi. GASTROINTESTINAL: Abdomen soft, non-tender, nondistended. EXTREMITIES: No edema or joint tenderness. BACK: Nontender without deformity or crepitance. No flank tenderness. NEURO: AOx3. SKIN: No rash or erythema of visible areas Initial Vital Signs Initial Vital Signs: Vital Signs Temperature 98.6 F 12/09/21 08:46 Pulse Rate 117 H 12/09/21 08:46 Respiratory Rate 20 12/09/21 08:46 Blood Pressure 165/94 H 12/09/21 08:46 Pulse Oximetry 99 12/09/21 08:46 Oxygen Delivery Method 12/09/21 08:46 Course Orders Ordered: ED Orders 12/09/21 08:59 US OB <= 14 weeks fetus Stat 12/09/21 09:04 Basic Metabolic Panel Stat Complete Blood Count AUTO DIFF Stat HCG Quantitative /Beta subunit Stat Consultations Consultation #1: Discussed with on-call Ob (Nateannalisa), recommends close follow-up with Dr. Chicas, pelvic precautions Vital Signs Vital signs: Vital Signs - 8 hr 12/09/21 08:46 Temperature 98.6 F Pulse Rate 117 H Respiratory Rate 20 Blood Pressure 165/94 H Pulse Oximetry 99 Oxygen Delivery Method Room Air MDM - OB/Uterine Contractions Lab Data Result diagrams: 12/09/21 09:04 12/09/21 09:04 Labs: Lab Results 12/09/21 12/09/21 Range/Units 09:04 09:04 WBC 8.8 (4.5-11.0) X10^3/uL RBC 4.50 (4.0-5.2) X10^6/uL Hgb 13.3 (12.0-16.0) g/dL Hct 38.5 (36-46) % MCV 85.6 (80-100) fL MCH 29.5 (26-34) PG MCHC 34.5 (30-36) % RDW 14.2 (11.6-14.8) % Plt Count 284 (150-400) X10^3/uL Neut % (Auto) 73.6 (50-75) % Lymph % (Auto) 18.4 L (25-40) % [place] % (Auto) 6.6 (3-14) % Eos % (Auto) 1.0 L (2-4) % Baso % (Auto) 0.4 (0-2) % Neut # (Auto) 6500 (9270-7441) /uL Lymph # (Auto) 1600 (6603-6660) /uL [place] # (Auto) 600 (0-900) /uL Eos # (Auto) 100 (0-450) /uL Baso # (Auto) 0 (0-100) /uL Sodium 137 (137-145) mmol/L Potassium 3.4 (3.4-5.1) mmol/L Chloride 105 (98-107) mmol/L Carbon Dioxide 20 L (22-32) mmol/L BUN 10 (7-17) mg/dL Creatinine 0.53 (0.52-1.04) mg/dL Estimated GFR > 60 (>60) mL/min BUN/Creatinine Ratio 18.9 (6-22) Glucose 107 H (70-100) mg/dL Calcium 9.1 (8.4-10.2) mg/dL HCG, Quant 11691 mIU/mL Urine Dip Bedside Urine Glucose Negative Bedside Urine Bilirubin - Negative Bedside Urine Ketone - Negative Urine Specific [place] 1.010 Bedside Urine Occult Blood +++ Bedside Urine pH 6 Bedside Urine Protein - Negative Bedside Urine Urobilinogen - Negative Bedside Urine Nitrite - Negative Bedside Urine Leukocytes - Negative Esterase Imaging Data US - OB: Radiologist's Impression: Vandana Boss??26??F??1995 ? Allergy/Adv: No Known Drug Allergies (More??) Close Ultrasound (Signed) Tony Amaya - 12/09/21 Telemetry Strips 11/08/19 Obstetrics Ultrasound (Signed) Ke Oshea - 07/27/19 Ultrasound (Signed) Hal Christianson - 07/13/19 Launch?[address] [address] Ultrasound Report Signed Patient: Vandana Boss MR#: [id number] : 1995 Acct:[id number] Age/Sex: 26 / F Date of Service: 12/09/21 Loc: ED Accession Number: [id number] ?? Procedure: US OB <= 14 weeks fetus Ordering Provider: Bowen De León D.O. PROCEDURE:? US OB <= 14 WEEKS FETUS ? INDICATIONS:? . BLEEDING. 10 WEEKS. ? OUTSIDE/PRIOR DATING DATA:? Last menstrual period (LMP):? 09/26/2021.? LMP-based estimated date of delivery (NNAMDI):? 07/03/2022.? First dating scan (date and location):? 12/02/2021.? Estimated date of delivery (NNAMDI) from first dating scan:? 07/04/2022. The calculations are made using the clinical NNAMDI of 07/03/2022. ? TECHNIQUE:? Real-time scanning was performed of the fetus and maternal pelvic organs, with image documentation.? Endovaginal scanning was also performed to better visualize the fetus and maternal ovaries.? ? COMPARISON:? [facility], , US OB <= 14 WEEKS FETUS, 12/02/2021, 16:02. ? FINDINGS:? ? Embryo:? 3.6 cm, 10 weeks 4 days Heart rate:? 171 bpm ? Small perigestational hemorrhage measuring 5.4 x 3.5 x 1.1 cm.? Yolk sac is present. ? Maternal organs:? Ovaries are within normal limits.? Probable right corpus luteum.? Prominent pelvic vein.? Small nabothian cysts. ? ? IMPRESSION:? 1. Castro living intrauterine at 10 weeks 4 days based on today's crown rump length. ? 2. Small perigestational hemorrhage. ? ? ? We strive to produce accurate, complete, and clear reports of imaging services. To assist us in improving patient care, this report was composed using standard report templates and voice recognition software. Therefore, it may contain abnormal punctuation, insertions and/or omissions. Occasional wrong-word or sound-alike substitutions may occur. Though we review the report and make efforts to correct it, we do recommend that the report be read carefully in proper context to recognize any text inaccuracies. ? ? Dictated by: Tony Amaya M.D. on 12/09/2021 at 9:58 ? ? Approved by: Tony Amaya M.D. on 12/09/2021 at 10:02 ? MDM Narrative Medical decision making narrative: 26-year-old female with stable vitals, normal H&H, Rh positive presents with painless bleeding that has slowed to almost nothing. Ultrasound demonstrates small perigestational hemorrhage with a live intrauterine . Patient has established OB locally and plans to follow up closely. Return precautions discussed and questions answered to her apparent satisfaction Discharge Plan Departure Patient Disposition: Home Clinical Impression: Vaginal bleeding in Instructions: DI for Vaginal Bleeding During Activity Restrictions/Additional Instructions: *You have been diagnosed with [vaginal bleeding in . As we discussed your is in the uterus as expected and there is a moderate associated area of bleeding just adjacent. We will follow this closely, there is no intervention possible at this point in time.] *What to do: *Please continue to take your regular medications as directed. *Please call Dr. Chicas's office today and let them know you were seen in the Emergency Department and that we ask that you be seen in follow up. We will electronically transmit a record of today's note * also as we discussed, please exercise pelvic rest which would include no intercourse, or heavily vigorous or exertional activities *Return to Emergency Department if you should have any new, worsening or concerning symptoms Prescriptions: No Action prenat.vits,darrion,[id number]-gfglm Tablet 1 tab PO DAILY Referrals: Magda Chicas MD [Physician] - Miscellaneous,DoctorMD [Primary Care Provider] - Visit Report Forms: Patient Portal/API
--- NOTE | 2021-12-09 08:59 | DI.US.S_ITS ---
PROCEDURE: US OB <= 14 WEEKS FETUS INDICATIONS: . BLEEDING. 10 WEEKS. OUTSIDE/PRIOR DATING DATA: Last menstrual period (LMP): 09/26/2021. LMP-based estimated date of delivery (NNAMDI): 07/03/2022. First dating scan (date and location): 12/02/2021. Estimated date of delivery (NNAMDI) from first dating scan: 07/04/2022. The calculations are made using the clinical NNAMDI of 07/03/2022. TECHNIQUE: Real-time scanning was performed of the fetus and maternal pelvic organs, with image documentation. Endovaginal scanning was also performed to better visualize the fetus and maternal ovaries. COMPARISON: [facility], , OB <= 14 WEEKS FETUS, 12/02/2021, 16:02. FINDINGS: Embryo: 3.6 cm, 10 weeks 4 days Heart rate: 171 bpm Small perigestational hemorrhage measuring 5.4 x 3.5 x 1.1 cm. Yolk sac is present. Maternal organs: Ovaries are within normal limits. Probable right corpus luteum. Prominent pelvic vein. Small nabothian cysts. IMPRESSION: 1. Castro living intrauterine at 10 weeks 4 days based on today's crown rump length. 2. Small perigestational hemorrhage. We strive to produce accurate, complete, and clear reports of imaging services. To assist us in improving patient care, this report was composed using standard report templates and voice recognition software. Therefore, it may contain abnormal punctuation, insertions and/or omissions. Occasional wrong-word or sound-alike substitutions may occur. Though we review the report and make efforts to correct it, we do recommend that the report be read carefully in proper context to recognize any text inaccuracies. Dictated by: Tony Amaya M.D. on 12/09/2021 at 9:58 Approved by: Tony Amaya M.D. on 12/09/2021 at 10:02
[2021-12-09 09:00] VITALS: PULSE 119; O2SAT 98
[2021-12-09 09:13] LABS: Add Manual Diff / Slide Review NO; Basophils Absolute Auto 0 /uL (0-100); Basophils Percent Auto 0.4 % (0-2); Eosinophils Absolute Auto 100 /uL (0-450); Hematocrit 38.5 % (36-46); Hemoglobin 13.3 g/dL (12.0-16.0); Lymphocytes Absolute Auto 1600 /uL (1100-4500); Lymphocytes Percent Auto 18.4 % (25-40); Mean Corpuscular HGB Conc 34.5 % (30-36); Mean Corpuscular Hemoglobin 29.5 PG (26-34); Mean Corpuscular Volume 85.6 fL (80-100); Monocytes Absolute Auto 600 /uL (0-900); Monocytes Percent Auto 6.6 % (3-14); Neutrophils Absolute Auto 6500 /uL (1500-7000); Neutrophils Percent Auto 73.6 % (50-75); Platelet Count 284 X10^3/uL (150-400); Red Cell Distribution Width 14.2 % (11.6-14.8); White Blood Cell Count 8.8 X10^3/uL (4.5-11.0)
[2021-12-09 09:26] LABS: BUN Creatinine Ratio 18.9 (6-22); Blood Urea Nitrogen 10 mg/dL (7-17); Calcium 9.1 mg/dL (8.4-10.2); Carbon Dioxide 20 mmol/L (22-32); Chloride 105 mmol/L (98-107); Estimated Glomerular Filt Rate > 60 mL/min (>60); Glucose 107 mg/dL (70-100); Potassium 3.4 mmol/L (3.4-5.1); Sodium 137 mmol/L (137-145)
[2021-12-09 09:31] VITALS: PULSE 88; O2SAT 92
[2021-12-09 10:00] VITALS: PULSE 88; O2SAT 98
[2021-12-09 10:09] LABS: HCG Quantitative /Beta subunit 92979 mIU/mL; HEMOLYSIS < 15 (0-50)
[2021-12-09 10:10] VITALS: BP 133/65
== END 2021-12-09 10:13 | disposition home or self-care (01) ==
PROVIDERS: Emergency Provider Emergency Medicine
DX: O46.91 Antepartum hemorrhage, unspecified, first trimester (principal); Z3A.10 10 weeks gestation of pregnancy
CPT/HCPCS: 36415; 76801; 76817; 80048; 81003; 84702; 85025; 99283; 99284

== ENCOUNTER → 2022-01-16 13:59 | Outpatient (CLI) | payer OTHER, SELFPAY ==
[2022-01-16 15:05] LABS: Add Manual Diff / Slide Review NO; Basophils Absolute Auto 0 /uL (0-100); Basophils Percent Auto 0.2 % (0-2); Eosinophils Absolute Auto 100 /uL (0-450); Eosinophils Percent Auto 1.6 % (2-4); Hemoglobin 12.3 g/dL (12.0-16.0); Lymphocytes Absolute Auto 2000 /uL (1100-4500); Lymphocytes Percent Auto 22.4 % (25-40); Mean Corpuscular HGB Conc 35.1 % (30-36); Mean Corpuscular Hemoglobin 30.5 PG (26-34); Mean Corpuscular Volume 86.7 fL (80-100); Monocytes Absolute Auto 400 /uL (0-900); Monocytes Percent Auto 4.8 % (3-14); Neutrophils Absolute Auto 6200 /uL (1500-7000); Platelet Count 264 X10^3/uL (150-400); Red Blood Cell Count 4.03 X10^6/uL (4.0-5.2); Red Cell Distribution Width 14.6 % (11.6-14.8); White Blood Cell Count 8.7 X10^3/uL (4.5-11.0)
[2022-01-16 15:22] LABS: Appearance Urine UA SL CLOUDY; Bilirubin Urine UA NEGATIVE (NEGATIVE); Color Urine UA YELLOW; Glucose Urine UA NEGATIVE (Negative); Ketones Urine UA NEGATIVE (NEGATIVE); Leukocyte Esterase Urine UA 3+ (NEGATIVE); Nitrite Urine UA NEGATIVE (Negative); Occult Blood Urine UA TRACE-LYSED (Negative); Protein Urine UA NEGATIVE (Negative); Specific Gravity Urine UA <=1.005 (1.000-1.035); Urobilinogen Urine UA 0.2 E.U./dL (0.2)
[2022-01-16 15:42] LABS: Bacteria Urine Moderate (10-30); Culture Indicated Urine Cult Not Indicated; RBC Urine None Seen (0-5/HPF); Squamous Epithelial Cell Urine 1-5 /HPF (0-5/HPF); WBC Urine 10-30/HPF (0-5/HPF)
[2022-01-16 16:00] LABS: Hepatitis B Surface Antigen NEGATIVE s/c (NEGATIVE)
[2022-01-16 16:22] LABS: HIV 1 & 2 Ab/Ag 4th Gen Combo NEGATIVE (NEGATIVE); Hep C Virus Ab w/Reflex Quant NEGATIVE s/c (NEGATIVE)
[2022-01-17 07:15] LABS: RPR Screen Non Reactive (Non Reactive)
[2022-01-18 11:46] LABS: Varicella IgG Antibody 651 index (Immune >165)
[2022-01-20 14:34] LABS: AFP, Serum 59.9 ng/mL (.); Inhibin A, Dimeric 258.99 pg/mL (.); Inhibin A, MoM 1.47 (.); Maternal Ethnicity Caucasian (.); Maternal Weight 130 lbs (.); Number of Fetuses No (.); OSBR Risk 1 IN 2393 (.); Results Report (.); Test Results *Screen Negative* (.); hCG, MoM 1.61 (.); hCG, Serum 79726 mIU/mL (.)
== END ==
PROVIDERS: Referring Provider Obstetrics & Gynecology; Visit Provider Obstetrics & Gynecology
DX: Z34.82 Encounter for supervision of other normal pregnancy, second trimester (principal); Z3A.16 16 weeks gestation of pregnancy
CPT/HCPCS: 36415; 80055; 81003; 81015; 82105; 82677; 84702; 86336; 86787; 86803; 86850; 86900; 86901; 87086; 87389

== ENCOUNTER → 2022-02-07 11:48 | Outpatient (CLI) | payer OTHER, SELFPAY ==
[2022-02-07 16:48] LABS: Urine N gonorrhoeae NOT DETECTED
[2022-02-07 16:54] LABS: Urine Chlamydia NOT DETECTED
== END ==
PROVIDERS: Visit Provider Obstetrics & Gynecology
DX: Z34.82 Encounter for supervision of other normal pregnancy, second trimester (principal); Z3A.19 19 weeks gestation of pregnancy
CPT/HCPCS: 87491; 87591

== ENCOUNTER → 2022-02-12 07:47 | Outpatient (CLI) | payer OTHER, SELFPAY ==
--- NOTE | 2022-02-12 07:48 | DI.US.S_ITS ---
PROCEDURE: US OB >= 14 WEEKS FETUS INDICATIONS: anatomy scan OUTSIDE/PRIOR DATING DATA: Last menstrual period (LMP): 09/26/2021. LMP-based estimated date of delivery (NNAMDI): 07/03/2022. First dating scan (date and location): 12/02/2021. TECHNIQUE: Real-time scanning was performed of the fetus, with image documentation and biometric measurements. Endovaginal scanning: No COMPARISON: [facility], US, OB >= 14 WEEKS FETUS, 02/07/2022, 11:41. FINDINGS: General: A single living intrauterine gestation is present. Presentation: Variable. Placenta: Placental position is posterior . Placenta is low lying, with the inferior edge at roughly 16 mm from the internal cervical os. Amniotic fluid index: 9.8 cm, normal range is 5-24 cm. Single deepest vertical pocket is 3.1 cm. heart rate: 144 beats per minute. Maternal cervical canal: 4.6 cm long. Normal lower limit is 2.5 cm. Report any funneling of internal cervical os: % of canal length, shape (U or V), width or any U-shaped funneling. Anatomic survey: Neuro: Right lateral ventricle is upper limits of normal at 10 mm. Left lateral ventricle is not well seen secondary to lie. Nuchal skin fold: Normal at less than 6 mm between 14-21 weeks gestational age. Face: Nose appears small. No evidence of cleft palate. Spine: No evidence for spina bifida. There is a posterior bulge posteriorly overlying the sacral spine. Heart: 4-chambered heart is present, with normal ventricular outflow tracts. Diaphragm: Diaphragm is intact. Stomach: Left-sided stomach is present. Kidneys: No hydronephrosis. Normal is less than 5 mm in 2nd trimester, less than 7 mm in 3rd trimester. Cord: 3-vessel cord is not well seen. Bladder: Normal in size. Extremities: All 4 extremities identified. IMPRESSION: 1. Single living intrauterine gestation. 2. Right lateral ventricle is at upper limits of normal. Left lateral ventricle not well seen. 3. Possible micrognathia. 4. Prominent soft tissue overlying the sacral spine. 5. Low lying placenta. We strive to produce accurate, complete, and clear reports of imaging services. To assist us in improving patient care, this report was composed using standard report templates and voice recognition software. Therefore, it may contain abnormal punctuation, insertions and/or omissions. Occasional wrong-word or sound-alike substitutions may occur. Though we review the report and make efforts to correct it, we do recommend that the report be read carefully in proper context to recognize any text inaccuracies. Dictated by: Bhaskar Luna M.D. on 02/12/2022 at 16:14 Transcribed by: LATRICE on 02/12/2022 at 16:18 Approved by: Bhaskar Luna M.D. on 02/12/2022 at 16:54
== END ==
PROVIDERS: Referring Provider Obstetrics & Gynecology; Visit Provider Obstetrics & Gynecology
DX: O44.42 Low lying placenta NOS or without hemorrhage, second trimester (principal); Z3A.20 20 weeks gestation of pregnancy
CPT/HCPCS: 76811

== ENCOUNTER → 2022-04-01 07:33 | Outpatient (CLI) | payer OTHER, SELFPAY ==
[2022-04-01 09:18] LABS: Hematocrit 34.6 % (36-46); Hemoglobin 11.9 g/dL (12.0-16.0)
[2022-04-01 09:45] LABS: GTT (PREG) 1 Hour PP 50gm Dose 103 mg/dL (76-139)
== END ==
PROVIDERS: Referring Provider Obstetrics & Gynecology; Visit Provider Obstetrics & Gynecology
DX: Z34.82 Encounter for supervision of other normal pregnancy, second trimester (principal); Z3A.26 26 weeks gestation of pregnancy
CPT/HCPCS: 36415; 82950; 85014; 85018

== ENCOUNTER 2022-06-06 10:15 | Observation (INO) | payer OTHER, SELFPAY ==
[2022-06-06 11:02] LABS: Add Manual Diff / Slide Review NO; Basophils Absolute Auto 100 /uL (0-100); Basophils Percent Auto 0.6 % (0-2); Eosinophils Absolute Auto 100 /uL (0-450); Eosinophils Percent Auto 1.4 % (2-4); Hematocrit 33.4 % (36-46); Hemoglobin 11.5 g/dL (12.0-16.0); Lymphocytes Absolute Auto 1700 /uL (1100-4500); Lymphocytes Percent Auto 17.7 % (25-40); Mean Corpuscular HGB Conc 34.4 % (30-36); Mean Corpuscular Hemoglobin 30.7 PG (26-34); Mean Corpuscular Volume 89.1 fL (80-100); Monocytes Absolute Auto 600 /uL (0-900); Monocytes Percent Auto 5.9 % (3-14); Neutrophils Absolute Auto 7200 /uL (1500-7000); Neutrophils Percent Auto 74.4 % (50-75); Platelet Count 231 X10^3/uL (150-400); Red Blood Cell Count 3.75 X10^6/uL (4.0-5.2); Red Cell Distribution Width 14.1 % (11.6-14.8); White Blood Cell Count 9.7 X10^3/uL (4.5-11.0)
[2022-06-06 11:09] LABS: Alanine Aminotransferase 16 IU/L (<35); Albumin 3.5 g/dL (3.5-5.0); Albumin Globulin Ratio 1.1 (1.0-2.8); Alkaline Phosphatase 134 U/L (38-126); Aspartate Aminotransferase 19 IU/L (14-36); BUN Creatinine Ratio 12.2 (6-22); Bilirubin Total 0.2 mg/dL (0.2-1.3); Blood Urea Nitrogen 6 mg/dL (7-17); Calcium 8.6 mg/dL (8.4-10.2); Carbon Dioxide 21 mmol/L (22-32); Chloride 105 mmol/L (98-107); Estimated Glomerular Filt Rate > 60 mL/min (>60); Globulin 3.3 g/dL (1.7-4.1); Glucose 117 mg/dL (70-100); HEMOLYSIS < 15 (0-50); Potassium 3.7 mmol/L (3.4-5.1); Sodium 135 mmol/L (137-145); Total Protein 6.8 g/dL (6.3-8.2); Uric Acid 3.9 mg/dL (2.5-6.2)
[2022-06-06 11:37] LABS: Creatinine Urine Random 22.5 mg/dL; Protein (Total) Urine Random 13 mg/dL (0-12); Protein Creatinine Ratio Urine 0.57 GRAM/24H
== END 2022-06-06 12:30 | disposition home or self-care (01) ==
LOC: LABOR 10:18
PROVIDERS: Obstetrics & Gynecology; Admitting Provider Obstetrics & Gynecology; Referring Provider Obstetrics & Gynecology; Visit Provider Obstetrics & Gynecology
DX: O26.893 Other specified pregnancy related conditions, third trimester (principal); R51.9 Headache, unspecified; R03.0 Elevated blood-pressure reading, without diagnosis of hypertension; H53.8 Other visual disturbances; Z3A.36 36 weeks gestation of pregnancy
CPT/HCPCS: 36415; 59025; 80053; 82570; 84156; 84550; 85025; G0378; G0379

== ENCOUNTER 2022-06-11 09:20 | Inpatient (IN) | payer OTHER, SELFPAY ==
[2022-06-11 10:06] LABS: Add Manual Diff / Slide Review NO; Basophils Absolute Auto 0 /uL (0-100); Basophils Percent Auto 0.5 % (0-2); Eosinophils Absolute Auto 100 /uL (0-450); Eosinophils Percent Auto 1.4 % (2-4); Hematocrit 34.4 % (36-46); Hemoglobin 11.6 g/dL (12.0-16.0); Lymphocytes Absolute Auto 1500 /uL (1100-4500); Lymphocytes Percent Auto 17.7 % (25-40); Mean Corpuscular HGB Conc 33.6 % (30-36); Mean Corpuscular Hemoglobin 30.2 PG (26-34); Mean Corpuscular Volume 89.9 fL (80-100); Monocytes Absolute Auto 600 /uL (0-900); Monocytes Percent Auto 6.8 % (3-14); Neutrophils Absolute Auto 6400 /uL (1500-7000); Neutrophils Percent Auto 73.6 % (50-75); Platelet Count 207 X10^3/uL (150-400); Red Blood Cell Count 3.83 X10^6/uL (4.0-5.2); Red Cell Distribution Width 14.4 % (11.6-14.8); White Blood Cell Count 8.7 X10^3/uL (4.5-11.0)
[2022-06-11 10:07] LABS: Creatinine Urine Random 11.8 mg/dL; Protein (Total) Urine Random 15 mg/dL (0-12); Protein Creatinine Ratio Urine 1.27 GRAM/24H
[2022-06-11 10:19] LABS: Aspartate Aminotransferase 19 IU/L (14-36); BUN Creatinine Ratio 10.9 (6-22); Blood Urea Nitrogen 6 mg/dL (7-17); Estimated Glomerular Filt Rate > 60 mL/min (>60); Uric Acid 4.7 mg/dL (2.5-6.2)
--- NOTE | 2022-06-11 10:25 | DI.US.S_ITS ---
PROCEDURE: US OB BIOPHYSICAL PROFILE INDICATIONS: HYPERTENSION OUTSIDE/PRIOR DATING DATA: Last menstrual period (LMP): 09/26/2021 LMP-based estimated date of delivery (NNAMDI): 07/03/2022 First dating scan (date and location): 12/02/2021 Estimated date of delivery (NNAMDI) from first dating scan: 07/04/2022 The calculations are made using the working NNAMDI of 07/03/2022. TECHNIQUE: Real-time scanning was performed of the fetus, with image documentation and biometric measurements. Biophysical profile was also obtained. Endovaginal scanning: Not indicated COMPARISON: [facility], OB >= 14 WEEKS FETUS, 02/12/2022, 8:19. [facility], OB >= 14 WEEKS FETUS, 04/08/2022, 9:41. [facility], OB >= 14 WEEKS FETUS, 04/30/2022, 8:48. FINDINGS: General: A single living intrauterine gestation is present. Presentation: Vertex Placenta: Placental position is posterior, without previa. Amniotic fluid index: 7.9 cm, normal range is 5-24 cm. Single deepest vertical pocket is 3.0 cm. heart rate: 135 beats per minute. Maternal cervical canal: 3.7 cm long. Normal lower limit is 2.5 cm. biometrics: Biparietal diameter: 8.9 cm, 36 weeks, 1 day. Head circumference: 31.4 cm, 35 weeks, 2 days. Abdominal circumference: 28.2 cm, 32 weeks, 2 days. Femur length: 7.2 cm, 36 weeks, 5 days. Clinically estimated gestational age: 36 weeks, 5 days Composite gestational age from present scan: 35 weeks, 1 day Estimated weight and percentile: 2379 grams, 6 percent Biophysical profile: Tone: 2 points. Movement: 2 points. Respiration: 0 points. Largest pocket of fluid: 2 points. Umbilical artery Doppler: 2.9, 2.3, 3.1 IMPRESSION: 1. Single live intrauterine gestation with fetus in vertex presentation. heart rate is 135 beats per minute. VERN equals 7.9 cm and is within normal limits. 2. Estimated weight is 6 percent. Abdominal circumference measures at 32 weeks, 2 days. 3. biophysical profile score is 6/8 with respiration scored 0. 4. Normal umbilical artery S/D ratio. We strive to produce accurate, complete, and clear reports of imaging services. To assist us in improving patient care, this report was composed using standard report templates and voice recognition software. Therefore, it may contain abnormal punctuation, insertions and/or omissions. Occasional wrong-word or sound-alike substitutions may occur. Though we review the report and make efforts to correct it, we do recommend that the report be read carefully in proper context to recognize any text inaccuracies. Dictated by: Ke Oshea M.D. on 06/11/2022 at 11:59 Approved by: Ke Oshea M.D. on 06/11/2022 at 12:05
[2022-06-11] MEDS: ACETAMINOPHEN 325 MG TABLET 975 MG PO ×2 (11:05→20:49)
[2022-06-11] MEDS: BETAMETHASONE 30 MG/5 ML MDV 12 MG IM (13:28)
[2022-06-11 16:24] VITALS: BP 125/68
[2022-06-11] MEDS: ZOLPIDEM 5 MG TABLET PO (20:50)
--- NOTE | 2022-06-11 20:51 | PM.OBHP.IH.1 ---
OB HPI Date/Time Date of admission: 06/11/22 Date Patient Seen: 06/11/22 Time Patient Seen: 20:52 History of Present Condition Chief complaint: NST NNAMDI Calculator Estimated Delivery Date Method Current WG Current Estimate 07/03/22 LMP (Certain) 36w 6d Other Estimates 07/04/22 Ultrasound #1 36w 5d Estimated Gestational Age (weeks): 36+6 : 2 Para: 1 Narrative: Patient presented to the office for routine OB visit at 36 and 6 weeks gestation. She was found to have an elevated blood pressure at 150s over 90s. She presented to labor and delivery. A biophysical profile was 8/10 with -2 for breathing. Amniotic fluid index was 7.0. Baby's growth was at the sixth percentile. She has a prior section. care: good care, initiated at week # (9), number of visits (12) and pounds weight gain (47) Dating criteria OB: LMP confirmed by 1st trimester US Ultrasounds: normal 1st trimester US and normal mid trimester US Obstetrical complications: gestational hypertension, growth restriction and other (Oligohydramnios) Medical complications OB: none Indications Operative indications ( section): previous uterine surgery Preadmission Labs Last OB Lab Results: Blood Type B Positive 01/16/22 14:10 Antibody Screen Negative 01/16/22 14:10 Hematocrit 34.4 % (36-46) L 06/11/22 09:50 Hemoglobin 11.6 g/dL (12.0-16.0) L 06/11/22 09:50 Hepatitis B Surface Antigen Negative s/c (NEGATIVE) 01/16/22 14:10 Hepatitis C Antibody Negative s/c (NEGATIVE) 01/16/22 14:10 Rubella Antibody 140.0 IU/mL (>15) 01/16/22 14:10 Varicella-Zoster IgG Antibody 651 index (Immune >165) 01/16/22 14:10 Glucose 1 Hour 103 mg/dL (76-139) 04/01/22 07:37 Group B Streptococcus (PCR) Neg for grp b strep 10/21/19 14:01 -: Chlamydia screen: negative, Gonorrhea screen: negative and Urine: negative Genetic Screens: Quad screen: Normal External Labs -: Urine: negative Prior (ies) Past Pregnancies Del. Date GA/Weeks Labor Lgth Wt Sex Route Outcome Anesthesia Place Delv Breastfeed Preg Comp Name 11/08/19 37.4 5 7 lb 8 oz Male live - full term IH 4 months pre-eclampsia Justin Evaluation Evaluation Baseline heart rate: 135 Variability: Moderate (11-25) monitor accelerations: Present Monitor Decelerations: Absent Status: Category l [facility] Medical History (Updated 06/11/22 @ 09:19 by Magda Chicas MD) Acute blood loss anemia Contraception management Pre-eclampsia Surgical History (Updated 12/22/21 @ 20:16 by Magda Chicas MD) Previous section (~11/08/19) [place] teeth removed (~2011) Family History (Updated 11/23/21 @ 20:45 by Ana Luisa Yeager) Father Hypertension Myocardial infarction Hyperlipidemia Mother Pre-eclampsia Grandfather Pancreatic adenoma Cancer Grandmother No problems noted. Grandfather No problems noted. Grandmother No problems noted. Social History marital status: number of children: 1 household members: spouse and children lives independently: Yes housing: house pets and animals: Yes (cat- aware of toxo) education level: college ([employer]) occupational status: employed ([employer]) current occupational exposures/hazards: No special ryder needs: No travel history: recent (domestic only) seatbelt use: always water heater temp set < 120 deg: Yes working smoke detector in home: Yes fire extinguisher in home: Yes carbon monox detector in home: Yes firearms in home: Yes firearms unloaded and locked: Yes do you feel safe at home: Yes Smoking Status: Never smoker second hand exposure: No alcohol intake: former (pre- : social) substance use type: does not use during the past year weight has: remained stable well-balanced diet: daily or most days daily servings fruits/ve-4 caffeine: Yes (Aware of 200mg limit) Type(s) of exercise: aerobic, resistance training and yoga frequency: daily Meds Home Medications and Allergies Home Medications Medication Instructions Recorded Confirmed Type prenat.vits,darrion,[id number] 1 tab PO DAILY 06/28/19 06/11/22 History Allergies Allergy/AdvReac Type Severity Reaction Status Date / Time No Known Drug Allergies Allergy Verified 06/11/22 08:36 OB Exam Narrative Exam Narrative: Generally: Patient lying in bed on her left side, no acute distress Lungs: Clear to auscultation bilaterally Cardiovascular: Regular rate and rhythm Fundal height: 36 cm Abdomen: No hepatosplenomegaly Extremities: Trace edema, 1+ DTRs Ultrasound: 6 percentile for growth. VERN 7.0. Biophysical profile 11/27 (-2 for breathing) Objective Labs 06/11/22 09:50 06/11/22 09:50 Labs: Laboratory Results - last 24 hr 06/11/22 06/11/22 06/11/22 09:40 09:50 09:50 WBC 8.7 RBC 3.83 L Hgb 11.6 L Hct 34.4 L MCV 89.9 MCH 30.2 MCHC 33.6 RDW 14.4 Plt Count 207 Neut % (Auto) 73.6 Lymph % (Auto) 17.7 L Reynolds % (Auto) 6.8 Eos % (Auto) 1.4 L Baso % (Auto) 0.5 Neut # (Auto) 6400 Lymph # (Auto) 1500 Reynolds # (Auto) 600 Eos # (Auto) 100 Baso # (Auto) 0 BUN 6 L Creatinine 0.55 Estimated GFR > 60 BUN/Creatinine Ratio 10.9 Uric Acid 4.7 AST 19 U Random Total Protein 15 H Urine Creatinine 11.8 Protein/Creatinin Ratio 1.27 Assessment and Plan Assessment and Plan Assessment and Plan narrative: Assessment: 26-year-old 2 para 1,36-,6/7 weeks gestation with gestational hypertension, oligohydramnios, and growth restriction Previous section Plan: Betamethasone 12.5 mg IM Planned repeat section June 12, 2022 The risks, benefits, and alternatives to the procedure were explained to the patient. The risks including bleeding, infection, injury to the bowel, bladder, or ureters. She understands these risks and agrees to proceed. A full par Q was held and consent form was signed. Time Spent with Patient Total time spent with greater than 50% in coordination of care (as documented) at patient's floor/unit and/or counseling patient:: 25 - 35 minutes
[2022-06-12 13:19] LABS: Add Manual Diff / Slide Review NO; Basophils Absolute Auto 100 /uL (0-100); Basophils Percent Auto 0.4 % (0-2); Eosinophils Absolute Auto 0 /uL (0-450); Eosinophils Percent Auto 0.2 % (2-4); Hematocrit 34.7 % (36-46); Hemoglobin 11.6 g/dL (12.0-16.0); Lymphocytes Absolute Auto 1900 /uL (1100-4500); Lymphocytes Percent Auto 13.4 % (25-40); Mean Corpuscular HGB Conc 33.4 % (30-36); Mean Corpuscular Hemoglobin 30.2 PG (26-34); Mean Corpuscular Volume 90.2 fL (80-100); Monocytes Absolute Auto 800 /uL (0-900); Monocytes Percent Auto 5.8 % (3-14); Neutrophils Absolute Auto 11400 /uL (1500-7000); Neutrophils Percent Auto 80.2 % (50-75); Platelet Count 238 X10^3/uL (150-400); Red Blood Cell Count 3.85 X10^6/uL (4.0-5.2); White Blood Cell Count 14.2 X10^3/uL (4.5-11.0)
[2022-06-12] MEDS: LACTATED RINGERS 1,000 ML 100 ML IV ×2 (13:52→15:12)
[2022-06-12] MEDS: CITRIC ACID/SODIUM CITRATE 15 ML SOLUTION 30 ML PO (15:50)
--- NOTE | 2022-06-12 15:51 | PM.PREOP ---
Pre-operative Note COVID-19 Criteria for continued procedure: Non-surgical alternatives not available or appropriate per current SOC Interval Note History & Physical reviewed/Exam performed by Physician: Yes Changes to H&P: No H&P completed within 30 days and has changed as indicated here:: 06/11/22
[2022-06-12] MEDS: CEFAZOLIN 2 GM/100 ML PREMIX 100 ML IV (16:30)
[2022-06-12] MEDS: ACETAMINOPHEN IV 1,000 MG/100 ML VIAL 400 MG IV (16:40)
--- NOTE | 2022-06-12 16:51 | SUR.OPER ---
Supine on padded OR bed, head on pillow, arms secured on padded arm boards at <90 degrees abduction, legs uncrossed, safety belt at thigh, tape over blanket over lower legs. Bump under right flank
[2022-06-12] MEDS: TRIAMCINOLONE 40 MG/ML VIAL IM (17:03)
--- NOTE | 2022-06-12 17:53 | PM.OBCS.1 ---
Operative Date/Time/Diagnoses Date of procedure: 06/12/22 Time of procedure: 17:53 Pre-op diagnosis: Thirty-seven weeks gestation Small for gestational age Oligohydramnios Gestational hypertension Keloid scar Skin tag of the left groin area Post-op diagnosis: same Procedure & Clinicians Procedure: Repeat low-transverse section Scar revision Removal of skin tag in the left groin Same procedure as scheduled: Yes Indications: 37 weeks gestation Oligohydramnios Small for gestational age Gestational hypertension Surgeon: Magda Chicas Click Yes if Unassisted: No Wrapper Hands Sprayer: Sammy Everett Anesthesia Type: Spinal (With Duramorph) Operative Notes Findings: Live male in the JORGE presentation Normal uterus, tubes, and ovaries Keloid scar Fascial adhesions Closure Type: primary Specimen(s): cord blood and placenta Intraoperative meds administered: Acetaminophen, Duramorph, Ketorolac and Pitocin Applied: Catheter (To continuous drainage) Estimated Blood Loss (mL): 600 Blood products transfused: none Procedure in detail: The patient was taken to the operating room where she was placed in the seated position. Spinal anesthesia with Duramorph was administered. The patient was then placed in the dorsal supine position with a leftward tilt. She was prepped and draped in the usual sterile fashion. A timeout was performed. After spinal analgesia was found to be adequate, the previous Pfannenstiel scar was excised in an elliptical fashion. The incision was carried down to the fascia. The fascia was nicked in the midline, and the incision extended bilaterally with the Jacques scissors. The superior aspect of the fascial incision was grasped with a Sha clamps, elevated, and the underlying rectus muscles dissected off sharply and bluntly. Attention was then turned to the inferior aspect of this incision which in a similar fashion was grasped with a [place] clamps, elevated, and the underlying rectus muscles dissected off sharply and bluntly. The rectus muscles were in the midline. The peritoneum was identified, grasped between 2 hemostats, and entered sharply with the Metzenbaum scissors. This incision was extended superiorly and inferiorly with good visualization of the bladder. The bladder blade was inserted. The vesicouterine peritoneum was identified, grasped with the pickup, and entered sharply with the Metzenbaum scissors. This incision was extended bilaterally, and the bladder flap was created digitally. The bladder blade was reinserted. The lower uterine segment was incised in a transverse fashion with the scalpel. Upon entering the amniotic sac there was scant clear fluid. The infant's head was delivered without difficulty. The nose and mouth were suctioned with bulb suction. The remainder of the body delivered without difficulty. The cord was double clamped and cut. The infant was handed off to waiting RN and RT. The placenta was delivered by expression. The uterus was cleared of all clots and debris. The uterine incision was repaired with #1 chromic in a running interlocking fashion, and a second layer the same suture was used for an imbricating layer. Hemostasis was achieved. The tubes and ovaries were examined and were found to be normal. The gutters were cleared of all clots and debris. The bladder flap was reapproximated using 2-0 Vicryl in a running fashion. The parietal peritoneum was closed using 2-0 Vicryl in a running fashion. The fascia was reapproximated using 0 Vicryl in a running fashion. The subcutaneous layer was copiously irrigated with warm normal saline. 5 simple interrupted sutures of 3-0 Vicryl were placed to reapproximate the subcutaneous layer. A 10 cc solution of 10 mg of Kenalog in 10 cc of saline were injected just below the skin on either side of the incision. The skin was closed with 4-0 undyed Vicryl in a subcuticular fashion. Steri-Strips were placed. An Aquacel dressing was placed. The uterus was expressed of a small amount of old blood. There was a skin tag at the junction of the leg and left lower abdomen. This was grasped with a pickup and using the Bovie at the base of the skin tag it was removed. Hemostasis was achieved. Sponge, lap, and instrument counts were correct x-2. The patient tolerated the procedure well, and was taken to PACU in stable condition. Complications: none [place] Baby 1: Gender: Male Presentation: vertex Position: Left Occiput Anterior Placental Delivery Description: Expressed Cord Vessel Description: 3 Vessels and Clamped/Cut score (1 min): 8 score (5 min): 9 weight: 5 lb 15 oz Post-operative Condition: stable Disposition: PACU Aftercare: routine postop
[2022-06-12 17:54] VITALS: BP 120/68; PULSE 90; RESP 15; TEMP 36.4; O2SAT 98
[2022-06-12 17:59] VITALS: BP 111/73; PULSE 88; RESP 14; O2SAT 99
[2022-06-12 18:04] VITALS: BP 125/66; PULSE 86; RESP 12; O2SAT 99
[2022-06-12] MEDS: ACETAMINOPHEN 325 MG TABLET 650 MG PO (20:29)
[2022-06-12] MEDS: KETOROLAC 30 MG/ML VIAL IV (23:30)
[2022-06-13] MEDS: ACETAMINOPHEN 325 MG TABLET 650 MG PO ×4 (03:11→23:21)
[2022-06-13] MEDS: KETOROLAC 30 MG/ML VIAL IV ×2 (05:15→12:58)
[2022-06-13 07:28] LABS: Hematocrit 26.5 % (36-46); Hemoglobin 8.8 g/dL (12.0-16.0)
[2022-06-13] MEDS: OXYCODONE IR 5 MG TABLET PO ×3 (08:01→20:02)
[2022-06-13] MEDS: PRENATAL VIT,CALC/IRON/FOLIC 1 TABLET 1 TAB PO (08:54)
[2022-06-13] MEDS: DOCUSATE 100 MG CAPSULE PO (08:54)
[2022-06-13] MEDS: IBUPROFEN 600 MG TABLET PO (20:09)
[2022-06-14] MEDS: IBUPROFEN 600 MG TABLET PO ×2 (01:54→07:59)
[2022-06-14] MEDS: ACETAMINOPHEN 325 MG TABLET 650 MG PO (06:30)
[2022-06-14] MEDS: DOCUSATE 100 MG CAPSULE PO (07:59)
[2022-06-14] MEDS: PRENATAL VIT,CALC/IRON/FOLIC 1 TABLET 1 TAB PO (07:59)
--- NOTE | 2022-06-14 08:29 | PM.OBPN.1 ---
Subjective - OB Subjective Patient comments: no complaints, pain well controlled and tolerating diet baby status: doing well and nursing well feeding status: breast and bottle feeding Date Patient Seen: 06/13/22 Time Patient Seen: 10:30 Interval history: Postop day # 1 status post repeat low-transverse section, keloid scar revision, and removal of skin tag. Nursing is going well. Pain is well controlled. She has voided without the catheter. She is ambulating without assistance. Exam Vital Signs (past 8 hours): Oxygen Delivery Method Room Air Narrative Exam Narrative: Generally: Patient is sitting up in bed, no acute distress Lungs: Clear to auscultation bilaterally Cardiovascular: Regular rate and rhythm Fundus: Firm at U-2 Incision: Aquacel dressing in place. Small areas of old blood showing through the dressing. Extremities: Negative Homans, trace edema Objective Labs 06/13/22 06:41 06/11/22 09:50 Assessment & Plan Plan day: 1 plan OB: routine postop care Comments: Anticipate discharge to September 06, 2022 Time Spent With Patient Time: Total time spent is greater than 50% in coordination of care (as documented) at patient's floor/unit and/or counseling patient: Time with patient: less than 15 minutes
--- NOTE | 2022-06-14 08:31 | P.DS_ITS ---
Discharge Providers Provider Date of admission: 06/11/22 09:20 Discharge Date: 06/14/22 Primary care physician: Doctor Jose Angel MD Consults: 06/12/22 19:34 Consult to Billet Sawyer Routine Comment: Discharge provider: Magda Chicas MD Summary Hospital Course Date Patient Seen: 06/14/22 Time Patient Seen: 08:32 Diagnoses: Thirty-seven weeks gestation Small for gestational age Oligohydramnios Previous section Keloid scar Skin tag of the left upper thigh Hospital Course: Patient is a 26-year-old 2 para 2 who presented to the office on June 11, 2022 for a scheduled appointment. She was found to have elevated blood pressure and was sent to the center for labs and nonstress test. She also had an ultrasound which showed an SGA infant as well as oligohydramnios. Patient had a prior section. A decision was made to proceed on June 12, 2022 with a repeat section and keloid scar revision. She underwent these procedures as well as a skin tag removal without difficulty. Her postoperative course has been unremarkable. She was able to void on postop day # 1 after the catheter was removed. She is tolerating a diet. She is passing flatus. is going well. She is ambulating without assistance. Her pain is well controlled. Peripartum Data Delivery Method: Section Procedures: Spinal anesthesia Repeat low-transverse section Keloid scar revision Excision of upper left thigh skin tag complications: none [place] 1: Gender: Male Disposition of : home Status at Discharge Cognitive/behavioral status at discharge: oriented Functional status at discharge: independent ambulation Overall status at discharge: patient is progressing back to baseline Time Spent with Patient Time attestation: Total time spent providing and/or coordinating discharge services: Time spent: Less than 30 minutes Objective Labs 06/13/22 06:41 06/11/22 09:50 Exam Vital Signs (past 8 hours): Oxygen Delivery Method Room Air Narrative Exam Narrative: Generally: Patient is sitting up in bed, eating breakfast, no acute distress Lungs: Clear to auscultation bilaterally Cardiovascular: Regular rate and rhythm Fundus: Firm at U-2 Extremities: Trace edema, negative Homans Discharge Plan Discharge Plan Patient Disposition: Home Provider Discharge Comment: Call with fever, chills, redness or drainage around the incision, or bleeding vaginally more than a pad in an hour Ibuprofen 600 mg every 6 hours as needed Tylenol 650 mg every 6 hours as needed Stool softener as needed Push oral fluids Discharge orders & Medications Prescriptions: New oxycodone 5 mg tablet 5 mg PO Q6H PRN (Reason: pain) Qty: 20 0RF Continued prenat.vits,darrion,[id number] Tablet 1 tab PO DAILY Follow up/Referrals: Magda Chicas MD [Physician] - 06/18/22 8:45 am (Aquacel dressing removal on June 18, 2022 at 8:45 a.m..) Diet/Activity/Treatments Diet: Regular Skin/Wound/Dressing Care Report to your healthcare provider any signs of infection, such as:: chills, fever, increased pain, unusual drainage and unusual redness Dressing: Do not remove Visit Report/Discharge Packet Instructions: Pre-eclampsia, DI for , DI for Prescription Opioid Use Stand Alone Forms: Patient Portal/API, Stroke Signs & Symptoms Discharge Data Primary Care Provider: Miscellaneous,Doctor
[2022-06-14] MEDS: OXYCODONE IR 5 MG TABLET PO (09:04)
== END 2022-06-14 12:07 | disposition home or self-care (01) | DRG 788 ==
PROVIDERS: Admitting Provider Obstetrics & Gynecology; Referring Provider Obstetrics & Gynecology; Visit Provider Obstetrics & Gynecology
PROC: 10D00Z1 Extraction of Products of Conception, Low, Open Approach (ICD-10-PCS; CPT 59514; principal; 2022-06-12 13:15)
DX: O41.03X0 Oligohydramnios, third trimester, not applicable or unspecified (principal); O34.211 Maternal care for low transverse scar from previous cesarean delivery; O13.4 Gestational [pregnancy-induced] hypertension without significant proteinuria, complicating childbirth; Z3A.37 37 weeks gestation of pregnancy; Z37.0 Single live birth; N90.89 Other specified noninflammatory disorders of vulva and perineum; L91.0 Hypertrophic scar; O99.892 Other specified diseases and conditions complicating childbirth; N73.6 Female pelvic peritoneal adhesions (postinfective); O36.5930 Maternal care for other known or suspected poor fetal growth, third trimester, not applicable or unspecified; Z3A.36 36 weeks gestation of pregnancy; Z34.83 Encounter for supervision of other normal pregnancy, third trimester
CPT/HCPCS: 36415; 59050; 59510; 59514; 76815; 76819; 82570; 84156; 84450; 84550; 85014; 85018; 85025; 86850; 86900; 86901; 87653; G0379; J0131; J0690; J0702; J1885; J2274; J2590

== ENCOUNTER → 2022-06-11 09:35 | Outpatient (CLI) | payer OTHER, SELFPAY ==
[2022-06-12 12:47] LABS: Strep Grp B PCR NEG for Grp B Strep
== END ==
PROVIDERS: Visit Provider Obstetrics & Gynecology
DX: Z34.83 Encounter for supervision of other normal pregnancy, third trimester (principal); Z3A.36 36 weeks gestation of pregnancy
CPT/HCPCS: 87653

== ENCOUNTER 2023-01-12 18:48 | Observation (INO) | payer OTHER, SELFPAY ==
[2023-01-12 18:58] VITALS: BP 140/74; PULSE 86; RESP 24; TEMP 37.3; O2SAT 99; BMI 22.2
[2023-01-12] MEDS: ONDANSETRON 4 MG ODT SL (19:05)
[2023-01-12] MEDS: SODIUM CHLORIDE 0.9% 1,000 ML 1000 ML IV ×2 (20:18→22:01)
[2023-01-12] MEDS: ONDANSETRON 4 MG/2 ML INJ IV (20:18)
[2023-01-12 20:24] LABS: Add Manual Diff / Slide Review NO; Basophils Absolute Auto 100 /uL (0-100); Basophils Percent Auto 0.7 % (0-2); Eosinophils Absolute Auto 0 /uL (0-450); Eosinophils Percent Auto 0.5 % (2-4); Hematocrit 42.5 % (36-46); Lymphocytes Absolute Auto 1200 /uL (1100-4500); Lymphocytes Percent Auto 11.7 % (25-40); Mean Corpuscular HGB Conc 32.9 % (30-36); Mean Corpuscular Hemoglobin 27.8 PG (26-34); Mean Corpuscular Volume 84.4 fL (80-100); Monocytes Absolute Auto 600 /uL (0-900); Monocytes Percent Auto 6.2 % (3-14); Neutrophils Absolute Auto 8100 /uL (1500-7000); Neutrophils Percent Auto 80.9 % (50-75); Platelet Count 389 X10^3/uL (150-400); Red Blood Cell Count 5.03 X10^6/uL (4.0-5.2); Red Cell Distribution Width 14.5 % (11.6-14.8)
[2023-01-12 20:37] LABS: Alanine Aminotransferase 35 IU/L (<35); Albumin 4.7 g/dL (3.5-5.0); Albumin Globulin Ratio 1.4 (1.0-2.8); Alkaline Phosphatase 86 U/L (38-126); Aspartate Aminotransferase 33 IU/L (14-36); BUN Creatinine Ratio 22.9 (6-22); Bilirubin Total 0.6 mg/dL (0.2-1.3); Blood Urea Nitrogen 16 mg/dL (7-17); Calcium 9.4 mg/dL (8.4-10.2); Carbon Dioxide 22 mmol/L (22-32); Chloride 101 mmol/L (98-107); Estimated Glomerular Filt Rate > 60 mL/min (>60); Globulin 3.4 g/dL (1.7-4.1); Glucose 108 mg/dL (70-100); HEMOLYSIS < 15 (0-50); Lipase 118 U/L (23-300); Potassium 3.2 mmol/L (3.4-5.1); Sodium 137 mmol/L (137-145); Total Protein 8.1 g/dL (6.3-8.2)
[2023-01-12 21:26] LABS: Appearance Urine UA CLOUDY; Bilirubin Urine UA NEGATIVE (NEGATIVE); Color Urine UA RED; Glucose Urine UA NEGATIVE (Negative); Ketones Urine UA 3+ (NEGATIVE); Leukocyte Esterase Urine UA 1+ (NEGATIVE); Nitrite Urine UA NEGATIVE (Negative); Occult Blood Urine UA 3+ (Negative); Protein Urine UA TRACE (Negative); Specific Gravity Urine UA 1.015 (1.000-1.035); Urobilinogen Urine UA 0.2 E.U./dL (0.2)
[2023-01-12 21:27] LABS: pH Urine UA 5.5 (4.5-8.0)
--- NOTE | 2023-01-12 21:29 | DI.CT.S_ITS ---
PROCEDURE: CT ABDOMEN PELVIS W CON INDICATIONS: vomiting, ? pyelo TECHNIQUE: After the administration of IV contrast, axial sections were acquired from the lung bases to the pubic symphysis. Coronal and sagittal reformats were performed. For radiation dose reduction, the following was used: automated exposure control, adjustment of mA and/or kV according to patient size. COMPARISON: None. FINDINGS: Image quality: Excellent. Lung bases: Unremarkable. Heart: Heart is normal in size. ABDOMEN: Liver: No mass lesion. Gallbladder: Within normal limits without calcified gallstones. Biliary ducts: No biliary ductal dilatation. Pancreas: Unremarkable. Spleen: Normal in size. Adrenal Glands: No adrenal nodules. Kidneys and Ureters: No hydronephrosis. The kidneys demonstrate symmetric enhancement bilaterally. No perinephric stranding or perinephric fluid collections. Stomach and Bowel: Stomach and small bowel loops are normal in caliber and wall thickness. The appendix is normal. There is mild segmental wall thickening within the transverse and descending colon with mild pericolonic fat stranding suggestive of a mild colitis. Peritoneum: No abnormal intraperitoneal fluid. No free air. Ventral Wall: No hernia. Abdominal Nodes: No retroperitoneal or mesenteric adenopathy by size criteria. Vessels: Aorta and inferior vena cava are normal in size. PELVIS: Pelvic Organs: There is a peripherally enhancing cyst within the right ovary measuring up to 2.2 cm. Bladder: Unremarkable. Pelvic Nodes: No enlarged lymph nodes. Miscellaneous: No inguinal hernias are seen. Bones: Visualized osseous structures demonstrate no suspicious focal lesions. IMPRESSION: 1. No definite CT evidence of pyelonephritis. Specifically, no evidence of a striated nephrogram, perinephric stranding, or perinephric fluid collections. 2. No hydronephrosis. 3. Mild segmental wall thickening of the transverse and descending colon suggestive of a mild colitis. Dictated by: Adam Blanca M.D. on 01/12/2023 at 22:58 Approved by: Adam Blanca M.D. on 01/12/2023 at 23:01
[2023-01-12 21:36] LABS: RBC Urine >100/HPF (0-5/HPF)
[2023-01-12 21:37] LABS: Bacteria Urine Few (2-10); Culture Indicated Urine Specimen Cultured; Squamous Epithelial Cell Urine 1-5 /HPF (0-5/HPF); WBC Urine 1-5/HPF (0-5/HPF)
[2023-01-12] MEDS: LORazepam 2 MG/ML INJ 0.5 MG IV (22:01)
[2023-01-12] MEDS: cefTRIAXone 2,000 MG in SODIUM CHLORIDE 0.9% 100 ML 200 MG IV (22:40)
--- NOTE | 2023-01-13 00:54 | ED_ITS ---
HPI - Nausea/Vomiting/Diarrhea General Chief complaint: Nausea/Vomiting/Diarrhea Stated complaint: N/V Time Seen by Provider: 01/12/23 21:29 Source: patient Mode of arrival: Ambulatory Limitations: no limitations History of Present Illness HPI Narrative: This is a 27-year-old female comes in with complaint of nausea and vomiting. Patient states several days ago she went out drinking with friends she states drink than normal amount started vomiting and has not been able to stop. She states yesterday she did have a break was not vomiting as much but started vomiting again today. She states she gets sweaty and feels hot when she is vomiting but not in between. She denies chest pain or shortness of breath, no syncope. She states no diarrhea, no constipation. She has not been having a lot of bowel movements but has been having formed bowel movements infrequently. No black or bloody stools. Denies dysuria urgency or frequency, denies any vaginal bleeding or discharge. She is sexually active, she isn't suspicious for any vaginal infections. Patient states she is not had similar episodes in the past. She states she is some epigastric pain particularly with vomiting. Most of her symptoms have been nausea. Patient states no prior surgeries. No daily medications. No known drug allergies. No tobacco, 2 or 3 drinks weekly, denies illicit including thc. Patient accompanied by her family/mother. Patient politely defers pelvic exam but is open to genital swabs. Related Data Home Medications Medication Instructions Recorded Confirmed No Known Home Medications 01/13/23 01/13/23 Allergies Allergy/AdvReac Type Severity Reaction Status Date / Time No Known Drug Allergies Allergy Verified 01/12/23 19:03 Review of Systems Review of Systems ROS Unobtainable: All systems reviewed & are unremarkable except as noted in HPI and below Patient History Medical History Acute blood loss anemia Contraception management Pre-eclampsia Surgical History Previous section (~11/08/19) [place] teeth removed (~2011) Family History Father Hypertension Myocardial infarction Hyperlipidemia Mother Pre-eclampsia Grandfather Pancreatic adenoma Cancer Grandmother No problems noted. Grandfather No problems noted. Grandmother No problems noted. Social History marital status: number of children: 1 household members: spouse, family and children lives independently: Yes housing: house pets and animals: Yes (cat- aware of toxo) education level: college ([employer]) occupational status: employed ([employer]) current occupational exposures/hazards: No special ryder needs: No travel history: recent (domestic only) seatbelt use: always water heater temp set < 120 deg: Yes working smoke detector in home: Yes fire extinguisher in home: Yes carbon monox detector in home: Yes firearms in home: Yes firearms unloaded and locked: Yes do you feel safe at home: Yes Smoking Status: Never smoker second hand exposure: No alcohol intake: former substance use type: does not use during the past year weight has: remained stable well-balanced diet: daily or most days daily servings fruits/ve-4 caffeine: Yes (Aware of 200mg limit) Type(s) of exercise: aerobic, resistance training and yoga frequency: daily Smoking Status: Never smoker alcohol intake frequency: a few times a week Substance Use Type: does not use Exam Narrative Exam Narrative: GENERAL: Alert and oriented x three, female in mild distress. HEENT: Head normocephalic, atraumatic, EOMI, pupils reactive, face symmetric, moist mucous membranes NECK: Supple, full range of motion CARDIOVASCULAR: Regular rate and rhythm without murmurs, rubs or gallops. RESPIRATORY: Breath sounds equal bilaterally, no wheezes rales or rhonchi. ABDOMEN: Soft, nontender. Nondistended. Normoactive bowel sounds all 4 quadrants. No guarding or rebound, rigidity, no mass : No CVA tenderness EXTREMITIES: Normal range of motion, no clubbing or edema. Neurovascularly intact NEUROLOGICAL: Cranial nerves II through XII grossly intact. Moving all extremities SKIN: Warm, dry, no petechiae, no rashes or lesions. Initial Vital Signs Initial Vital Signs: Vital Signs Temperature 99.1 F 01/12/23 18:58 Pulse Rate 86 01/12/23 18:58 Respiratory Rate 24 01/12/23 18:58 Blood Pressure 140/74 01/12/23 18:58 Pulse Oximetry 99 01/12/23 18:58 Oxygen Delivery Method Room Air 01/12/23 18:58 Course Orders Ordered: ED Orders 01/12/23 20:13 Complete Blood Count AUTO DIFF Stat Comprehensive Metabolic Panel Stat Lipase Stat 01/12/23 21:05 UA Complete [Urinalysis and Microscopic] Stat Urine Culture Stat 01/12/23 21:29 CT abdomen pelvis w con Stat 01/13/23 01:02 Chlamydia/Gonoc/Myco Genital Stat 01/13/23 01:10 Genital Culture Stat Wet Prep Tric BV Ornda Stat 01/13/23 02:00 Urine Drug Screen, Rapid Stat 01/13/23 02:20 EKG-12 Lead Stat 01/13/23 02:38 ETOH [Ethanol (ETOH)] Stat Ketones (Beta-Hydroxybutyrate) Stat Sodium Chloride (Normal Saline 0.9%) 1,000 mls @ 150 mls/hr IV CONT SIERRA Last Admin: 01/13/23 02:07 Dose: 150 mls/hr Documented By: CARMEL Sodium Chloride (Normal Saline 0.9%) 1,000 mls @ 100 mls/hr IV CONT SIERRA Last Admin: 01/13/23 03:00 Dose: Not Given Documented By: AJ Ondansetron HCl (Ondansetron 4 Mg Odt) 4 mg SL NOW PRN PRN Reason: Nausea And Vomiting Ondansetron HCl (Ondansetron 4 Mg/2 Ml Inj) 4 mg IV NOW PRN PRN Reason: Nausea And Vomiting Last Admin: 01/12/23 20:18 Dose: 4 mg Documented By: ODALIS Discontinued Medications Sodium Chloride (Normal Saline 0.9%) 1,000 mls @ 1,000 mls/hr IV BOLUS ONE Stop: 01/12/23 21:07 Last Infusion: 01/12/23 20:51 Dose: 0 mls/hr Documented By: Admin: 01/12/23 20:18 Dose: 1,000 mls/hr Documented By: ODALIS Sodium Chloride (Normal Saline 0.9%) 1,000 mls @ 1,000 mls/hr IV BOLUS ONE Stop: 01/12/23 22:28 Last Infusion: 01/12/23 22:42 Dose: 0 mls/hr Documented By: Admin: 01/12/23 22:01 Dose: 1,000 mls/hr Documented By: ANJALI Ceftriaxone Sodium 2,000 mg/ (Sodium Chloride) 100 mls @ 200 mls/hr IV NOW ONE Stop: 01/12/23 22:23 Last Infusion: 01/12/23 23:11 Dose: 0 mls/hr Documented By: Admin: 01/12/23 22:40 Dose: 200 mls/hr Documented By: ODALIS Azithromycin 500 mg/ Dextrose 250 mls @ 250 mls/hr IV NOW ONE Stop: 01/13/23 02:19 Last Admin: 01/13/23 02:36 Dose: 250 mls/hr Documented By: CARMEL Lorazepam (Lorazepam 2 Mg/Ml Inj) 0.5 mg IV NOW ONE Stop: 01/12/23 21:30 Last Admin: 01/12/23 22:01 Dose: 0.5 mg Documented By: ANJALI Metoclopramide HCl (Metoclopramide 10 Mg/2 Ml Inj) 10 mg IV NOW ONE Stop: 01/13/23 02:17 Last Admin: 01/13/23 02:29 Dose: 10 mg Documented By: CARMEL Ondansetron HCl (Ondansetron 4 Mg Odt) 4 mg SL NOW ONE Stop: 01/12/23 19:04 Last Admin: 01/12/23 19:05 Dose: 4 mg Documented By: ODALIS Ondansetron HCl (Ondansetron 4 Mg/2 Ml Inj) 4 mg IV NOW ONE Stop: 01/13/23 01:08 Last Admin: 01/13/23 01:20 Dose: 4 mg Documented By: RYAN Vital Signs Vital signs: Vital Signs - 8 hr 01/13/23 01:08 Temperature 98.4 F Respiratory Rate 18 Blood Pressure 130/74 Pulse Oximetry 98 Oxygen Delivery Method Room Air MDM - Nausea/Vomiting/Diarrhea Lab Data 01/12/23 20:13 01/12/23 20:13 Labs: Lab Results 01/12/23 01/12/23 01/12/23 Range/Units 20:13 20:13 21:05 WBC 10.0 (4.5-11.0) X10^3/uL RBC 5.03 (4.0-5.2) X10^6/uL Hgb 14.0 (12.0-16.0) g/dL Hct 42.5 (36-46) % MCV 84.4 (80-100) fL MCH 27.8 (26-34) PG MCHC 32.9 (30-36) % RDW 14.5 (11.6-14.8) % Plt Count 389 (150-400) X10^3/uL Neut % (Auto) 80.9 H (50-75) % Lymph % (Auto) 11.7 L (25-40) % [place] % (Auto) 6.2 (3-14) % Eos % (Auto) 0.5 L (2-4) % Baso % (Auto) 0.7 (0-2) % Neut # (Auto) 8100 H (0791-5748) /uL Lymph # (Auto) 1200 (1909-8309) /uL Jasper # (Auto) 600 (0-900) /uL Eos # (Auto) 0 (0-450) /uL Baso # (Auto) 100 (0-100) /uL Sodium 137 (137-145) mmol/L Potassium 3.2 L (3.4-5.1) mmol/L Chloride 101 (98-107) mmol/L Carbon Dioxide 22 (22-32) mmol/L BUN 16 (7-17) mg/dL Creatinine 0.70 (0.52-1.04) mg/dL Estimated GFR > 60 (>60) mL/min BUN/Creatinine Ratio 22.9 H (6-22) Glucose 108 H (70-100) mg/dL Calcium 9.4 (8.4-10.2) mg/dL Total Bilirubin 0.6 (0.2-1.3) mg/dL AST 33 (14-36) IU/L ALT 35 H (<35) IU/L Alkaline Phosphatase 86 (38-126) U/L Total Protein 8.1 (6.3-8.2) g/dL Albumin 4.7 (3.5-5.0) g/dL Globulin 3.4 (1.7-4.1) g/dL Albumin/Globulin Ratio 1.4 (1.0-2.8) Lipase 118 (23-300) U/L Urine Color Red Urine Appearance Cloudy Urine pH 5.5 (4.5-8.0) Ur Specific [place] 1.015 (1.000-1.035) Urine Protein Trace H (Negative) Urine Glucose (UA) Negative (Negative) g/dL Urine Ketones 3+ H (NEGATIVE) Urine Occult Blood 3+ H (Negative) Urine Nitrate Negative (Negative) Urine Bilirubin Negative (NEGATIVE) Urine Urobilinogen 0.2 (0.2) E.U./dL Ur Leukocyte Esterase 1+ H (NEGATIVE) Urine RBC >100/hpf H (0-5/HPF) Urine WBC 1-5/hpf (0-5/HPF) Ur Squamous Epith Cells 1-5 /hpf (0-5/HPF) Urine Bacteria Few (2-10) H (None) Ur Culture Indicated? Specimen cultured U Opiates 300ng/mL cut (Negative) Ur Oxycodone Screen (Negative) Urine Methadone Screen (Negative) Ur Barbiturates Screen (Negative) U Tricyclic Antidepress (Negative) Ur Phencyclidine Scrn (Negative) Ur Amphetamines Screen (Negative) U Methamphetamines Scrn (Negative) Ur MDMA Scrn (Ecstasy) (Negative) U Benzodiazepines Scrn (Negative) Urine Cocaine Screen (Negative) U Marijuana (THC) Screen (Negative) 01/12/23 Range/Units 21:05 WBC (4.5-11.0) X10^3/uL RBC (4.0-5.2) X10^6/uL Hgb (12.0-16.0) g/dL Hct (36-46) % MCV (80-100) fL MCH (26-34) PG MCHC (30-36) % RDW (11.6-14.8) % Plt Count (150-400) X10^3/uL Neut % (Auto) (50-75) % Lymph % (Auto) (25-40) % [place] % (Auto) (3-14) % Eos % (Auto) (2-4) % Baso % (Auto) (0-2) % Neut # (Auto) (4923-4291) /uL Lymph # (Auto) (4269-2029) /uL [place]asper # (Auto) (0-900) /uL Eos # (Auto) (0-450) /uL Baso # (Auto) (0-100) /uL Sodium (137-145) mmol/L Potassium (3.4-5.1) mmol/L Chloride (98-107) mmol/L Carbon Dioxide (22-32) mmol/L BUN (7-17) mg/dL Creatinine (0.52-1.04) mg/dL Estimated GFR (>60) mL/min BUN/Creatinine Ratio (6-22) Glucose (70-100) mg/dL Calcium (8.4-10.2) mg/dL Total Bilirubin (0.2-1.3) mg/dL AST (14-36) IU/L ALT (<35) IU/L Alkaline Phosphatase (38-126) U/L Total Protein (6.3-8.2) g/dL Albumin (3.5-5.0) g/dL Globulin (1.7-4.1) g/dL Albumin/Globulin Ratio (1.0-2.8) Lipase (23-300) U/L Urine Color Urine Appearance Urine pH (4.5-8.0) Ur Specific [place] (1.000-1.035) Urine Protein (Negative) Urine Glucose (UA) (Negative) g/dL Urine Ketones (NEGATIVE) Urine Occult Blood (Negative) Urine Nitrate (Negative) Urine Bilirubin (NEGATIVE) Urine Urobilinogen (0.2) E.U./dL Ur Leukocyte Esterase (NEGATIVE) Urine RBC (0-5/HPF) Urine WBC (0-5/HPF) Ur Squamous Epith Cells (0-5/HPF) Urine Bacteria (None) Ur Culture Indicated? U Opiates 300ng/mL cut Negative (Negative) Ur Oxycodone Screen Negative (Negative) Urine Methadone Screen Negative (Negative) Ur Barbiturates Screen Negative (Negative) U Tricyclic Antidepress Negative (Negative) Ur Phencyclidine Scrn Negative (Negative) Ur Amphetamines Screen Negative (Negative) U Methamphetamines Scrn Negative (Negative) Ur MDMA Scrn (Ecstasy) Negative (Negative) U Benzodiazepines Scrn Negative (Negative) Urine Cocaine Screen Negative (Negative) U Marijuana (THC) Screen Positive H (Negative) Point of Care Testing Test Results Negative Urine Dip Bedside Urine Glucose Negative Bedside Urine Bilirubin - Negative Bedside Urine Ketone +++ 80 Urine Specific S[place] 1.015 Bedside Urine Occult Blood +++ Bedside Urine pH 6.0 Bedside Urine Protein +/- 15 Bedside Urine Urobilinogen - Negative Bedside Urine Nitrite - Negative Bedside Urine Leukocytes + [address] scan - abdomen/pelvis: Radiologist's Impression: [address] [address] [address] Scan Report Signed Patient: Vandana Boss MR#: [id number] : 1995 Acct:[id number] Age/Sex: 27 / F Date of Service: 01/12/23 Loc: ED Accession Number: [id number] ?? Procedure: CT abdomen pelvis w con Ordering Provider: Nereida Moralez D.O. PROCEDURE:? CT ABDOMEN PELVIS W CON ? INDICATIONS:? vomiting, ? pyelo ? TECHNIQUE:? After the administration of IV contrast, axial sections were acquired from the lung bases to the pubic symphysis.? Coronal and sagittal reformats were performed.? For radiation dose reduction, the following was used:? automated exposure control, adjustment of mA and/or kV according to patient size. ? COMPARISON:? None. ? FINDINGS:? Image quality:? Excellent.? ? Lung bases:? Unremarkable.? ? Heart:? Heart is normal in size. ? ? ABDOMEN: Liver:? No mass lesion. Gallbladder:? Within normal limits without calcified gallstones.? ? Biliary ducts:? No biliary ductal dilatation.? ? Pancreas:? Unremarkable.? ? Spleen:? Normal in size.? ? Adrenal Glands:? No adrenal nodules.? ? Kidneys and Ureters:? No hydronephrosis.? The kidneys demonstrate symmetric enhancement bilaterally.? No perinephric stranding or perinephric fluid collections. ? ? Stomach and Bowel:? Stomach and small bowel loops are normal in caliber and wall thickness.? The appendix is normal.? There is mild segmental wall thickening within the transverse and descending colon with mild pericolonic fat stranding suggestive of a mild colitis. Peritoneum:? No abnormal intraperitoneal fluid.? No free air.? ? Ventral Wall: ? No hernia.? Abdominal Nodes:? No retroperitoneal or mesenteric adenopathy by size criteria.? Vessels:? Aorta and inferior vena cava are normal in size.? ? PELVIS: Pelvic Organs:? There is a peripherally enhancing cyst within the right ovary measuring up to 2.2 cm.? ? Bladder:? Unremarkable.? ? Pelvic Nodes: No enlarged lymph nodes.? Miscellaneous: No inguinal hernias are seen. ? ? ? Bones:? Visualized osseous structures demonstrate no suspicious focal lesions. ? IMPRESSION:? ? 1. No definite CT evidence of pyelonephritis.? Specifically, no evidence of a striated nephrogram, perinephric stranding, or perinephric fluid collections. ? 2. No hydronephrosis. ? 3. Mild segmental wall thickening of the transverse and descending colon suggestive of a mild colitis.? ? ? Dictated by: Adam Blanca M.D. on 01/12/2023 at 22:58 ? ? Approved by: Adam Blanca M.D. on 01/12/2023 at 23:01?? ECG Data Attestation: I personally reviewed and interpreted this ECG as follows: Prior ECG tracings: not available for review Interpretation: Sinus rhythm with sinus arrhythmia rate of 75 TN 158 QRS [address] QTC [address] changes. No priors for comparison. MDM Narrative Medical decision making narrative: 27-year-old female with overall reassuring vitals, labs show little bit of leftward shift potassium 3.2, glucose is 108 renal function electrolytes otherwise normal ALT is 35 but normal LFTs, bilirubin and lipase. test is negative. Urine tests show ketones, occult blood patient states she is on her menses. She does have leukocyte esterase urine shows greater than 100 RBCs with 1+ leuks, 1-5 wbc's and few bacteria specimen was sent for culture. After discussion with patient she is not having a lot of superior pubic, abdominal or flank pain. She is mostly nauseated. She is sexually active discussed pelvic exam she prefers self swab. CT imaging was obtained shows possible colitis but patient is not having any diarrhea she is not having a lot of abdominal pain her symptoms are more vomiting which makes this seem less likely to be the source. She was covered with a dose of Rocephin for possible UTI/pyelo/PID. Patient does have white cells in urine, she has white cells on micro but no clue cells, GC swab was sent although she denies any symptoms otherwise. Patient has several rounds of medications with persistent vomiting. Spoke with Dr. Lenz, tele-hospitalist: Patient's vitals have been very appropriate her labs are overall reassuring CT abdomen pelvis shows possible colitis although symptoms seem less likely with more persistent vomiting and no real diarrhea. She has white cells in her urine could have UTI/pyelo but has no flank pain. She is sexually active had white cells but no clue cells, GC swab was sent. Patient has been covered with Rocephin thus far. She is had several doses of IV antiemetics, Toradol and fluids with persistent vomiting. Accepts for observation, does asked to give a dose of Reglan, go ahead and cover with azithromycin for full coverage for GC, normal saline 150 keep patient for observ ation. Also requests add on for UDS, EtOH and ketones. These were sent. Patient did have EKG ordered she is had multiple QT prolonging agents and adding Reglan in his erythromycin. Patient had all receives her medications before EKG was done does show some prolongation. Will avoid further Qt prolonging meds currently. Discharge Plan Departure Patient Disposition: Admitted As Inpatient Clinical Impression: Intractable vomiting Admit Date/Time: 01/13/23 02:21 Admit Provider: Goran Lenz
[2023-01-13 01:08] VITALS: BP 130/74; RESP 18; TEMP 36.9; O2SAT 98
[2023-01-13] MEDS: ONDANSETRON 4 MG/2 ML INJ IV (01:20)
[2023-01-13] MEDS: SODIUM CHLORIDE 0.9% 1,000 ML 150 ML IV (02:07)
[2023-01-13] MEDS: METOCLOPRAMIDE 10 MG/2 ML INJ IV (02:29)
[2023-01-13] MEDS: AZITHROMYCIN 500 MG in DEXTROSE 5% IN WATER 250 ML 250 MG IV (02:36)
[2023-01-13 02:51] VITALS: BMI 22.2
[2023-01-13 03:00] VITALS: BP 110/57; PULSE 50; RESP 16; TEMP 36.8; O2SAT 98
[2023-01-13 03:03] LABS: Ethanol (ETOH) < 10 mg/dL
[2023-01-13 03:20] LABS: UR Morphine/Opiate cutoff 300 Negative (Negative); Ur Creatinine 20 (Normal); Ur Specific Gravity 1.025 (Normal); Urine Amphetamines Negative (Negative); Urine Barbiturates Negative (Negative); Urine Benzodiazepines Negative (Negative); Urine Cocaine Negative (Negative); Urine MDMA Negative (Negative); Urine Methadone Negative (Negative); Urine Methamphetamines Negative (Negative); Urine Oxycodone Negative (Negative); Urine Phencyclidine Negative (Negative); Urine Tetrahydrocannabinol Positive (Negative); Urine Tricyclic Antidepressant Negative (Negative); Urine pH 5 (Normal)
--- NOTE | 2023-01-13 03:27 | CM.MNRNOTE ---
Patient admitted to room 208. Accompanied by her mom, tired & wants to rest. Denies any pain, no C/O nausea @ this time. Oriented to he room, encouraged to call for assistance if she needed to get up OOB to the bathroom. Denies any fall for the past 3 months bed alarm off & call light with in reached. Will monitor & cont. plan of care.
--- NOTE | 2023-01-13 04:18 | PC.NURSE ---
Pt. denies fall earlier, then admitted that fell in the stairs last Thursday. Bed alarm activated.
--- NOTE | 2023-01-13 04:47 | DI.US.S_ITS ---
PROCEDURE: US ABDOMEN LIMITED INDICATIONS: EPIGASTRIC PAIN; N/V TECHNIQUE: Real-time scanning was performed of the abdominal and retroperitoneal organs, with image documentation. COMPARISON: None. FINDINGS: Liver: The liver is enlarged measuring 19.2 cm. Increased echogenicity of the liver. Gallbladder: Within normal limits. Biliary ducts: Intrahepatic bile ducts are non-dilated. Extrahepatic bile duct caliber measures 3.8 mm. Normal is 6-7 mm or less in diameter, or 10 mm or less post-cholecystectomy. Pancreas: Visualized portions of the pancreas are sonographically normal. IMPRESSION: 1. Hepatomegaly. Increased hepatic echogenicity noted possibly related to hepatic steatosis but other sources of hepatocellular disease or hepatic cirrhosis cannot be excluded. Recommend clinical correlation. 2. The gallbladder is within normal limits. No gallstones or gallbladder wall thickening. No intra or extrahepatic biliary ductal dilatation. Dictated by: Aydin Asher M.D. on 01/13/2023 at 8:24 Approved by: Aydin Asher M.D. on 01/13/2023 at 8:25
--- NOTE | 2023-01-13 05:31 | P.HP_ITS ---
History of Present Illness History of Present Illness Chief complaint: N/V Narrative: CHIEF COMPLAINT Epigastric pain and dry heaves 2 days HPI 27-year-old female with no significant past medical history drank 2 glasses of cider over the weekend at dinner. For the past 48 hours she is experienced sharp epigastric pain which was nonradiating. It was associated with intractable nausea and vomiting. Pain was moderate?severe. Please note she is currently menstruating and is sexually active. In the emergency room she was hemodynamically stable with mild tachycardia. Abdominal exam was nonsurgical. Labs are significant for WBC 10.0, 80% neutrophils, potassium 3.2, ALT 35, normal bilirubin with alkaline phosphatase and lipase. Urinalysis 3+ ketones with occult blood and trace protein. There w as also 1+ leukocyte Estrace few bacteria. But this was not associated with suprapubic or pelvic pain. Urine toxicology was significant for marijuana. Serum ketones was 0.9. CT of the abdomen pelvis has mild segmental wall thickening of the transverse and descending colon suggestive of mild colitis. There was no evidence of pyelonephritis or gallbladder pathology. She was given multiple doses of Zofran, Ativan, and IV fluids but her nausea and vomiting returned with any fluid challenge. She is currently feeling much better and she will be admitted for further observation. She was given a dose of Rocephin and azithromycin to cover any STDs. She did a self administered swab in the ER which is send out. [facility] Medical History Acute blood loss anemia Contraception management Pre-eclampsia Surgical History Previous section (~11/08/19) [place] teeth removed (~2011) Family History Father Hypertension Myocardial infarction Hyperlipidemia Mother Pre-eclampsia Grandfather Pancreatic adenoma Cancer Grandmother No problems noted. Grandfather No problems noted. Grandmother No problems noted. 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) current occupational exposures/hazards: No special ryder needs: No travel history: recent (domestic only) seatbelt use: always water heater temp set < 120 deg: Yes working smoke detector in home: Yes fire extinguisher in home: Yes carbon monox detector in home: Yes firearms in home: Yes firearms unloaded and locked: Yes do you feel safe at home: Yes Smoking Status: Never smoker second hand exposure: No alcohol intake: former substance use type: does not use during the past year weight has: remained stable well-balanced diet: daily or most days daily servings fruits/ve-4 caffeine: Yes (Aware of 200mg limit) Type(s) of exercise: aerobic, resistance training and yoga frequency: daily Meds Home Medications and Allergies Home Medications Medication Instructions Recorded Confirmed Type No Known Home Medications 01/13/23 01/13/23 History Allergies Allergy/AdvReac Type Severity Reaction Status Date / Time No Known Drug Allergies Allergy Verified 01/12/23 19:03 Review of Systems Review of Systems Narrative: REVIEW OF SYSTEMS: Significant for findings noted in the HPI. Rest of complete review of systems is negative Exam Vital Signs (past 8 hours): - 01/13/23 01:08 01/13/23 03:00 Temperature 98.4 F 98.2 F Pulse Rate 50 L Respiratory Rate 18 16 Blood Pressure 130/74 110/57 L Pulse Oximetry 98 98 Oxygen Delivery Method Room Air Oxygen Flow Rate 0 Oxygen Delivery Method Room Air Oxygen Flow Rate 0 Narrative Exam Narrative: EXAMINATION: Bedside RN assisted in examination along with telemedicine devices. Please note there are inherent limitations to this exam GEN: Alert and oriented x3 HEENT: Normocephalic. Pupils are equal and reactive to light. Mucous membranes are moist. NECK: No lumps, JVD, or bruit CVS: S1 + S2 without murmur RESP: Clear to auscultation bilaterally GIT: Soft, nontender, + Bowel Sounds EXTR: No cyanosis, clubbing or edema. 2+ Pulses. NEURO: No gross focal motor deficits SKIN: No rash or breakdown Objective Imaging CT scan - abdomen: My impression: agree with report Radiologist's impression: IMPRESSION:? ? 1. No definite CT evidence of pyelonephritis.? Specifically, no evidence of a striated nephrogram, perinephric stranding, or perinephric fluid collections. ? 2. No hydronephrosis. ? 3. Mild segmental wall thickening of the transverse and descending colon suggestive of a mild colitis.? ? ? Dictated by: Adam Blanca M.D. on 01/12/2023 at 22:58 ? ? Approved by: Adam Blanca M.D. on 01/12/2023 at 23:01 ? Labs 01/12/23 20:13 01/12/23 20:13 Labs: Laboratory Results - last 24 hr 01/12/23 01/12/23 01/12/23 20:13 20:13 21:05 WBC 10.0 RBC 5.03 Hgb 14.0 Hct 42.5 MCV 84.4 MCH 27.8 MCHC 32.9 RDW 14.5 Plt Count 389 Neut % (Auto) 80.9 H Lymph % (Auto) 11.7 L [place] % (Auto) 6.2 Eos % (Auto) 0.5 L Baso % (Auto) 0.7 Neut # (Auto) 8100 H Lymph # (Auto) 1200 [place] # (Auto) 600 Eos # (Auto) 0 Baso # (Auto) 100 Sodium 137 Potassium 3.2 L Chloride 101 Carbon Dioxide 22 BUN 16 Creatinine 0.70 Estimated GFR > 60 BUN/Creatinine Ratio 22.9 H Glucose 108 H Calcium 9.4 Total Bilirubin 0.6 AST 33 ALT 35 H Alkaline Phosphatase 86 Total Protein 8.1 Albumin 4.7 Globulin 3.4 Albumin/Globulin Ratio 1.4 Lipase 118 Urine Color Red Urine Appearance Cloudy Urine pH 5.5 Ur Specific [place] 1.015 Urine Protein Trace H Urine Glucose (UA) Negative Urine Ketones 3+ H Urine Occult Blood 3+ H Urine Nitrate Negative Urine Bilirubin Negative Urine Urobilinogen 0.2 Ur Leukocyte Esterase 1+ H Urine RBC >100/hpf H Urine WBC 1-5/hpf Ur Squamous Epith Cells 1-5 /hpf Urine Bacteria Few (2-10) H Ur Culture Indicated? Specimen cultured U Opiates 300ng/mL cut Ur Oxycodone Screen Urine Methadone Screen Ur Barbiturates Screen U Tricyclic Antidepress Ur Phencyclidine Scrn Ur Amphetamines Screen U Methamphetamines Scrn Ur MDMA Scrn (Ecstasy) U Benzodiazepines Scrn Urine Cocaine Screen U Marijuana (THC) Screen Ethyl Alcohol Ketones 09/25/23 09/26/23 21:05 02:38 WBC RBC Hgb Hct MCV MCH MCHC RDW Plt Count Neut % (Auto) Lymph % (Auto) [place] % (Auto) Eos % (Auto) Baso % (Auto) Neut # (Auto) Lymph # (Auto) [place] # (Auto) Eos # (Auto) Baso # (Auto) Sodium Potassium Chloride Carbon Dioxide BUN Creatinine Estimated GFR BUN/Creatinine Ratio Glucose Calcium Total Bilirubin AST ALT Alkaline Phosphatase Total Protein Albumin Globulin Albumin/Globulin Ratio Lipase Urine Color Urine Appearance Urine pH Ur Specific [place] Urine Protein Urine Glucose (UA) Urine Ketones Urine Occult Blood Urine Nitrate Urine Bilirubin Urine Urobilinogen Ur Leukocyte Esterase Urine RBC Urine WBC Ur Squamous Epith Cells Urine Bacteria Ur Culture Indicated? U Opiates 300ng/mL cut Negative Ur Oxycodone Screen Negative Urine Methadone Screen Negative Ur Barbiturates Screen Negative U Tricyclic Antidepress Negative Ur Phencyclidine Scrn Negative Ur Amphetamines Screen Negative U Methamphetamines Scrn Negative Ur MDMA Scrn (Ecstasy) Negative U Benzodiazepines Scrn Negative Urine Cocaine Screen Negative U Marijuana (THC) Screen Positive H Ethyl Alcohol < 10 Ketones 0.90 H Assessment & Plan Assessment and plan (1) Intractable vomiting: Status: Acute (2) Hypokalemia: Status: Acute Assessment & Plan narrative: ASSESSMENT/PLAN: 27-year-old female is admitted with epigastric pain, dehydration, nausea/vomiti ng, nonspecific colitis, mild hypokalemia, mild starvation ketosis, and no extreme positive for marijuana #Epigastric pain #Nausea/vomiting X 48 hours #Nonspecific colitis #Dehydration #Starvation ketosis #Incidental marijuana use-- cyclic vomiting is part of differential #Hypokalemia Sepsis occurred after drinking cider with dinner 2 days ago. Denied excessive alcohol use LFTs and lipase are stable. Abdominal exam is nonsurgical. Did not respond to multiple antiemetics and Ativan. -Observation -IV fluids -Antiemetics -Clear liquid diet -Replace potassium -Stop marijuana #sexually active #Currently menstruating #Abnormal UA Self-administered swab performed. Results pending. Refused pelvic exam. Denies pelvic pain -Rocephin + azithromycin given by the ER MED REC - Reviewed. DVT Risk -SCDs CODE STATUS: -Full Code FEN - IV Fluids # SECONDARY PROBLEMS Pre-eclampsia Goran Lenz MD [facility] Quality VTE Deep Vein Thrombosis/Pulmonary Embolism Present on Admission: No
[2023-01-13 05:47] LABS: Alanine Aminotransferase 33 IU/L (<35); Albumin 4.2 g/dL (3.5-5.0); Albumin Globulin Ratio 1.4 (1.0-2.8); Alkaline Phosphatase 70 U/L (38-126); Aspartate Aminotransferase 44 IU/L (14-36); BUN Creatinine Ratio 18.2 (6-22); Bilirubin Total 0.6 mg/dL (0.2-1.3); Blood Urea Nitrogen 12 mg/dL (7-17); Calcium 8.9 mg/dL (8.4-10.2); Carbon Dioxide 20 mmol/L (22-32); Chloride 107 mmol/L (98-107); Estimated Glomerular Filt Rate > 60 mL/min (>60); Globulin 3.1 g/dL (1.7-4.1); Glucose 112 mg/dL (70-100); HEMOLYSIS 21 (0-50); Potassium 3.9 mmol/L (3.4-5.1); Sodium 138 mmol/L (137-145); Total Protein 7.3 g/dL (6.3-8.2)
[2023-01-13] MEDS: PANTOPRAZOLE DR 20 MG TABLET PO (05:48)
[2023-01-13 08:41] VITALS: BP 138/73; PULSE 72; RESP 17; TEMP 36.6; O2SAT 99
--- NOTE | 2023-01-13 10:29 | PM.HP.1 ---
History of Present Illness History of Present Illness Date Patient Seen: 01/13/23 Time Patient Seen: 10:29 Date of Onset of Symptoms: 01/11/23 Chief complaint: N/V Narrative: 27-year-old female with no significant past medical history drank 2 glasses of cider over the weekend at dinner.? For the past 48 hours she is experienced sharp epigastric pain which was nonradiating.? It was associated with intractable nausea and vomiting.? Pain was moderate?severe. ? Please note she is currently menstruating and is sexually active. In the emergency room she was hemodynamically stable with mild tachycardia.? Abdominal exam was nonsurgical.? ? Labs are significant for WBC 10.0, 80% neutrophils, potassium 3.2, ALT 35, normal bilirubin with alkaline phosphatase and lipase.? Urinalysis 3+ ketones with occult blood and trace protein.? There was also 1+ leukocyte Estrace few bacteria.? But this was not associated with suprapubic or pelvic pain.? Urine toxicology was significant for marijuana.? Serum ketones was 0.9. CT of the abdomen pelvis has mild segmental wall thickening of the transverse and descending colon suggestive of mild colitis.? There was no evidence of pyelonephritis or gallbladder pathology. She was given multiple doses of Zofran, Ativan, and IV fluids but her nausea and vomiting returned with any fluid challenge.? She is currently feeling much better and she will be admitted for further observation. She was given a dose of Rocephin and azithromycin to cover any STDs.? She did a self administered swab in the ER which is send out. 01/13 AM: symptoms have all improved. No further nausea. No recent diarrhea, denies fevers or chills. Denies a H/O exceptional alcohol use. [facility] Medical History Acute blood loss anemia Contraception management Pre-eclampsia Surgical History Previous section (~11/08/19) [place] teeth removed (~2011) Family History Father Hypertension Myocardial infarction Hyperlipidemia Mother Pre-eclampsia Grandfather Pancreatic adenoma Cancer Grandmother No problems noted. Grandfather No problems noted. Grandmother No problems noted. 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) current occupational exposures/hazards: No special ryder needs: No travel history: recent (domestic only) seatbelt use: always water heater temp set < 120 deg: Yes working smoke detector in home: Yes fire extinguisher in home: Yes carbon monox detector in home: Yes firearms in home: Yes firearms unloaded and locked: Yes do you feel safe at home: Yes Smoking Status: Never smoker second hand exposure: No alcohol intake: former substance use type: does not use during the past year weight has: remained stable well-balanced diet: daily or most days daily servings fruits/ve-4 caffeine: Yes (Aware of 200mg limit) Type(s) of exercise: aerobic, resistance training and yoga frequency: daily Meds Home Medications and Allergies Home Medications Medication Instructions Recorded Confirmed Type No Known Home Medications 01/13/23 01/13/23 History Allergies Allergy/AdvReac Type Severity Reaction Status Date / Time No Known Drug Allergies Allergy Verified 01/12/23 19:03 Review of Systems Review of Systems Narrative: All else reviewed and otherwise unremarkable except as noted on the H&P. Denies pain, dyspnea, constipation or other concerns. Exam Vital Signs (past 8 hours): - 01/13/23 03:00 01/13/23 08:41 Temperature 98.2 F 97.8 F Pulse Rate 50 L 72 Respiratory Rate 16 17 Blood Pressure 110/57 L 138/73 Pulse Oximetry 98 99 Oxygen Flow Rate 0 0 Oxygen Delivery Method Room Air Oxygen Flow Rate 0 Narrative Exam Narrative: The patient is awake and in NAD. Normal speech and mentation. Normal judgement, and calm affect. Head is atraumatic and EOMI. Anicteric sclera. Oropharynx is moist. Neck is supple and trachea is midline. Lungs are CTA, with normal rate and effort. Heart is RRR, without murmur, gallop, or rub. Abdomen is soft, NT and ND. Extremities are free of edema. Good arm pulses. Good leg pulses. Skin is free of rash or lesions. Joints are free of swelling or deformity. Back with normal ROM. Objective Imaging CT scan - abdomen: Radiologist's impression: IMPRESSION:? ? 1. No definite CT evidence of pyelonephritis.? Specifically, no evidence of a striated nephrogram, perinephric stranding, or perinephric fluid collections. ? 2. No hydronephrosis. ? 3. Mild segmental wall thickening of the transverse and descending colon suggestive of a mild colitis.? ? US - abdomen: Radiologist's impression: 1. Hepatomegaly.? Increased hepatic echogenicity noted possibly related to hepatic steatosis but other sources of hepatocellular disease or hepatic cirrhosis cannot be excluded.? Recommend clinical correlation. 2. The gallbladder is within normal limits.? No gallstones or gallbladder wall thickening.? No intra or extrahepatic biliary ductal dilatation. ? Labs 01/12/23 20:13 01/13/23 02:38 Labs: Laboratory Results - last 24 hr 01/12/23 01/12/23 01/12/23 20:13 20:13 21:05 WBC 10.0 RBC 5.03 Hgb 14.0 Hct 42.5 MCV 84.4 MCH 27.8 MCHC 32.9 RDW 14.5 Plt Count 389 Neut % (Auto) 80.9 H Lymph % (Auto) 11.7 L [place] % (Auto) 6.2 Eos % (Auto) 0.5 L Baso % (Auto) 0.7 Neut # (Auto) 8100 H Lymph # (Auto) 1200 [place] # (Auto) 600 Eos # (Auto) 0 Baso # (Auto) 100 Sodium 137 Potassium 3.2 L Chloride 101 Carbon Dioxide 22 BUN 16 Creatinine 0.70 Estimated GFR > 60 BUN/Creatinine Ratio 22.9 H Glucose 108 H Calcium 9.4 Total Bilirubin 0.6 AST 33 ALT 35 H Alkaline Phosphatase 86 Total Protein 8.1 Albumin 4.7 Globulin 3.4 Albumin/Globulin Ratio 1.4 Lipase 118 Urine Color Red Urine Appearance Cloudy Urine pH 5.5 Ur Specific [place] 1.015 Urine Protein Trace H Urine Glucose (UA) Negative Urine Ketones 3+ H Urine Occult Blood 3+ H Urine Nitrate Negative Urine Bilirubin Negative Urine Urobilinogen 0.2 Ur Leukocyte Esterase 1+ H Urine RBC >100/hpf H Urine WBC 1-5/hpf Ur Squamous Epith Cells 1-5 /hpf Urine Bacteria Few (2-10) H Ur Culture Indicated? Specimen cultured U Opiates 300ng/mL cut Ur Oxycodone Screen Urine Methadone Screen Ur Barbiturates Screen U Tricyclic Antidepress Ur Phencyclidine Scrn Ur Amphetamines Screen U Methamphetamines Scrn Ur MDMA Scrn (Ecstasy) U Benzodiazepines Scrn Urine Cocaine Screen U Marijuana (THC) Screen Ethyl Alcohol Ketones 01/12/23 01/13/23 01/13/23 21:05 02:38 02:38 WBC RBC Hgb Hct MCV MCH MCHC RDW Plt Count Neut % (Auto) Lymph % (Auto) [place] % (Auto) Eos % (Auto) Baso % (Auto) Neut # (Auto) Lymph # (Auto) [place] # (Auto) Eos # (Auto) Baso # (Auto) Sodium 138 Potassium 3.9 Chloride 107 Carbon Dioxide 20 L BUN 12 Creatinine 0.66 Estimated GFR > 60 BUN/Creatinine Ratio 18.2 Glucose 112 H Calcium 8.9 Total Bilirubin 0.6 AST 44 H ALT 33 Alkaline Phosphatase 70 Total Protein 7.3 Albumin 4.2 Globulin 3.1 Albumin/Globulin Ratio 1.4 Lipase Urine Color Urine Appearance Urine pH Ur Specific [place] Urine Protein Urine Glucose (UA) Urine Ketones Urine Occult Blood Urine Nitrate Urine Bilirubin Urine Urobilinogen Ur Leukocyte Esterase Urine RBC Urine WBC Ur Squamous Epith Cells Urine Bacteria Ur Culture Indicated? U Opiates 300ng/mL cut Negative Ur Oxycodone Screen Negative Urine Methadone Screen Negative Ur Barbiturates Screen Negative U Tricyclic Antidepress Negative Ur Phencyclidine Scrn Negative Ur Amphetamines Screen Negative U Methamphetamines Scrn Negative Ur MDMA Scrn (Ecstasy) Negative U Benzodiazepines Scrn Negative Urine Cocaine Screen Negative U Marijuana (THC) Screen Positive H Ethyl Alcohol < 10 Ketones 0.90 H Assessment & Plan Assessment & Plan narrative: 27-year-old female is admitted with epigastric pain, dehydration, nausea/vomiting, nonspecific colitis, mild hypokalemia, mild starvation ketosis, and no extreme positive for marijuana 1. Epigastric pain, POA and improved. 2. Nausea/vomiting X 48 hours, POA and resolved. 3. Nonspecific colitis, POA and improved. 4. Dehydration, POA and active. 5. Starvation ketosis, POA and active. 6. Incidental marijuana use-- cyclic vomiting is part of differential, POA and stable. 7. Hypokalemia, POA and improved. -Observation -IV fluids -Antiemetics -Clear liquid diet -Replace potassium -Stop marijuana 8. Abnormal UA, POA. -Self-administered swab performed.? Results pending. -Refused pelvic exam. -Denies pelvic pain -Rocephin + azithromycin given by the ER MED REC - Reviewed.? DVT Risk -SCDs CODE STATUS:? -Full Code FEN - IV Fluids SECONDARY PROBLEMS:? Pre-eclampsia Time Spent With Patient Time with patient: 30 to 49 minutes with 50% spent counseling/coordinating care Quality VTE Deep Vein Thrombosis/Pulmonary Embolism Present on Admission: No
--- NOTE | 2023-01-13 11:47 | CM.DANOTE ---
DCP Assessment Note: Patient is a 27yo F here following N/V. PCP None. HANDBAG PARTS CUTTER provided list of PCPs in her area accepting new patient's with her insurance. Payer Richard Lo HANDBAG PARTS CUTTER reviewed EMR. Per hospitalist in rounds, results from ultra sound are pending. May d/c today? HANDBAG PARTS CUTTER entered room and introduced self and role. Patient resting in bed and appeared A/Ox4. Patient lives with spouse (Yemi [phone]) in [place] with children and her Mom. Patient is IADLs/Drives, likely transport home from hospital with step-dad. Patient reports feeling better and that she was told she may d/c today or tomorrow. Reports no needs from CM team. Plan: home with family when medically stable. Likely transport with family in [place]. CM team will continue to follow as needed. CONNIE Knox Discharge Planning/Care Management CM Discharge Assessment Start: 01/13/23 11:46 Freq: Status: Active Protocol: Document 01/13/23 11:46 (Rec: 01/13/23 11:47 [id number]) Discharge Planning Assessment Assigned Systems Consultant CONNIE Carmona DPOA/Assigned Designee Name Yemi (spouse) Contact Information [phone] Advance Directives? No History Provided By Patient,Medical Record Prior Living Arrangements House Household Members spouse,family,children Type of transporation used prior to Drives own vehicle admit Independent with ADL's Yes Is patient alert and oriented? Yes Discharge Plan Home Transportation Arrangement step dad in [place] Whiteboard Updated in Patient Room with Yes name and ext. # of Systems Consultant Review Status In Process Next Review Type Continued Stay Review
--- NOTE | 2023-01-13 15:11 | P.DS_ITS ---
History of Present Illness History of Present Illness Date Patient Seen: 01/13/23 Time Patient Seen: 15:11 Date of Onset of Symptoms: 01/12/23 Chief complaint: N/V Narrative: 27-year-old female with no significant past medical history drank 2 glasses of cider over the weekend at dinner.? For the past 48 hours she is experienced sharp epigastric pain which was nonradiating.? It was associated with intractable nausea and vomiting.? Pain was moderate?severe. ? Please note she is currently menstruating and is sexually active. In the emergency room she was hemodynamically stable with mild tachycardia.? Abdominal exam was nonsurgical.? ? Labs are significant for WBC 10.0, 80% neutrophils, potassium 3.2, ALT 35, normal bilirubin with alkaline phosphatase and lipase.? Urinalysis 3+ ketones with occult blood and trace protein.? There was also 1+ leukocyte Estrace few bacteria.? But this was not associated with suprapubic or pelvic pain.? Urine toxicology was significant for marijuana.? Serum ketones was 0.9. CT of the abdomen pelvis has mild segmental wall thickening of the transverse and descending colon suggestive of mild colitis.? There was no evidence of pyelonephritis or gallbladder pathology. She was given multiple doses of Zofran, Ativan, and IV fluids but her nausea and vomiting returned with any fluid challenge.? She is currently feeling much better and she will be admitted for further observation. She was given a dose of Rocephin and azithromycin to cover any STDs.? She did a self administered swab in the ER which is send out. 01/13 AM: symptoms have all improved. No further nausea. No recent diarrhea, denies fevers or chills. Denies a H/O exceptional alcohol use. Discharge Providers Provider Date of admission: 01/13/23 02:21 Discharge Date: 01/13/23 Primary care physician: Doctor Jose Angel MD Consults: None. Discharge provider: Nish Thomas MD Summary Hospital Course Discharge Diagnosis: 1. Transient nausea and vomiting, POA and resolved. 2. Possible steatohepatitis, POA and stable. Hospital Course: The patient was admitted for transient N,V after drinking some ciders. She was hydrated and treated symptomatically and improving. She had an US RUQ indicating possible fatty liver. She was advised of this and to follow up with a new PCP and touch bases on the liver issue. Status at Discharge Cognitive/behavioral status at discharge: at baseline, oriented Functional status at discharge: independent ambulation Overall status at discharge: patient is back to baseline Time Spent with Patient Time spent: Greater than 30 minutes Exam Vital Signs (past 8 hours): - 01/13/23 08:41 Temperature 97.8 F Pulse Rate 72 Respiratory Rate 17 Blood Pressure 138/73 Pulse Oximetry 99 Oxygen Flow Rate 0 Oxygen Delivery Method Room Air Oxygen Flow Rate 0 Narrative Exam Narrative: Seen and examined. See earlier note. Objective Imaging US - abdomen: Radiologist's impression: 1. Hepatomegaly.? Increased hepatic echogenicity noted possibly related to hepatic steatosis but other sources of hepatocellular disease or hepatic cirrhosis cannot be excluded.? Recommend clinical correlation. 2. The gallbladder is within normal limits.? No gallstones or gallbladder wall thickening.? No intra or extrahepatic biliary ductal dilatation. ? CT scan - abdomen: Radiologist's impression: 1. No definite CT evidence of pyelonephritis.? Specifically, no evidence of a striated nephrogram, perinephric stranding, or perinephric fluid collections. ? 2. No hydronephrosis. ? 3. Mild segmental wall thickening of the transverse and descending colon suggestive of a mild colitis.? ? Labs 01/12/23 20:13 01/13/23 02:38 Labs: Laboratory Results - last 24 hr 01/12/23 01/12/23 01/12/23 20:13 20:13 21:05 WBC 10.0 RBC 5.03 Hgb 14.0 Hct 42.5 MCV 84.4 MCH 27.8 MCHC 32.9 RDW 14.5 Plt Count 389 Neut % (Auto) 80.9 H Lymph % (Auto) 11.7 L [place] % (Auto) 6.2 Eos % (Auto) 0.5 L Baso % (Auto) 0.7 Neut # (Auto) 8100 H Lymph # (Auto) 1200 [place] # (Auto) 600 Eos # (Auto) 0 Baso # (Auto) 100 Sodium 137 Potassium 3.2 L Chloride 101 Carbon Dioxide 22 BUN 16 Creatinine 0.70 Estimated GFR > 60 BUN/Creatinine Ratio 22.9 H Glucose 108 H Calcium 9.4 Total Bilirubin 0.6 AST 33 ALT 35 H Alkaline Phosphatase 86 Total Protein 8.1 Albumin 4.7 Globulin 3.4 Albumin/Globulin Ratio 1.4 Lipase 118 Urine Color Red Urine Appearance Cloudy Urine pH 5.5 Ur Specific [place] 1.015 Urine Protein Trace H Urine Glucose (UA) Negative Urine Ketones 3+ H Urine Occult Blood 3+ H Urine Nitrate Negative Urine Bilirubin Negative Urine Urobilinogen 0.2 Ur Leukocyte Esterase 1+ H Urine RBC >100/hpf H Urine WBC 1-5/hpf Ur Squamous Epith Cells 1-5 /hpf Urine Bacteria Few (2-10) H Ur Culture Indicated? Specimen cultured U Opiates 300ng/mL cut Ur Oxycodone Screen Urine Methadone Screen Ur Barbiturates Screen U Tricyclic Antidepress Ur Phencyclidine Scrn Ur Amphetamines Screen U Methamphetamines Scrn Ur MDMA Scrn (Ecstasy) U Benzodiazepines Scrn Urine Cocaine Screen U Marijuana (THC) Screen Ethyl Alcohol Ketones 01/12/23 01/13/23 01/13/23 21:05 02:38 02:38 WBC RBC Hgb Hct MCV MCH MCHC RDW Plt Count Neut % (Auto) Lymph % (Auto) [place] % (Auto) Eos % (Auto) Baso % (Auto) Neut # (Auto) Lymph # (Auto) [place] # (Auto) Eos # (Auto) Baso # (Auto) Sodium 138 Potassium 3.9 Chloride 107 Carbon Dioxide 20 L BUN 12 Creatinine 0.66 Estimated GFR > 60 BUN/Creatinine Ratio 18.2 Glucose 112 H Calcium 8.9 Total Bilirubin 0.6 AST 44 H ALT 33 Alkaline Phosphatase 70 Total Protein 7.3 Albumin 4.2 Globulin 3.1 Albumin/Globulin Ratio 1.4 Lipase Urine Color Urine Appearance Urine pH Ur Specific [place] Urine Protein Urine Glucose (UA) Urine Ketones Urine Occult Blood Urine Nitrate Urine Bilirubin Urine Urobilinogen Ur Leukocyte Esterase Urine RBC Urine WBC Ur Squamous Epith Cells Urine Bacteria Ur Culture Indicated? U Opiates 300ng/mL cut Negative Ur Oxycodone Screen Negative Urine Methadone Screen Negative Ur Barbiturates Screen Negative U Tricyclic Antidepress Negative Ur Phencyclidine Scrn Negative Ur Amphetamines Screen Negative U Methamphetamines Scrn Negative Ur MDMA Scrn (Ecstasy) Negative U Benzodiazepines Scrn Negative Urine Cocaine Screen Negative U Marijuana (THC) Screen Positive H Ethyl Alcohol < 10 Ketones 0.90 H PFSH Medical History Acute blood loss anemia Contraception management Pre-eclampsia Surgical History Previous section (~11/08/19) [place] teeth removed (~2011) Family History Father Hypertension Myocardial infarction Hyperlipidemia Mother Pre-eclampsia Grandfather Pancreatic adenoma Cancer Grandmother No problems noted. Grandfather No problems noted. Grandmother No problems noted. 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) current occupational exposures/hazards: No special ryder needs: No travel history: recent (domestic only) seatbelt use: always water heater temp set < 120 deg: Yes working smoke detector in home: Yes fire extinguisher in home: Yes carbon monox detector in home: Yes firearms in home: Yes firearms unloaded and locked: Yes do you feel safe at home: Yes Smoking Status: Never smoker second hand exposure: No alcohol intake: former substance use type: does not use during the past year weight has: remained stable well-balanced diet: daily or most days daily servings fruits/ve-4 caffeine: Yes (Aware of 200mg limit) Type(s) of exercise: aerobic, resistance training and yoga frequency: daily Discharge Assessment & Plan Assessment and Plan Assessment: [address] [address] History & Physical Report Patient: Vandana Boss MR#: [id number] : 1995 Acct:[id number] Age/Sex: 27 / F ? Date of Service: 01/13/23 Provider:Rachell Thomas MD History of Present Illness History of Present Illness Date Patient Seen: 01/13/23 Time Patient Seen: 10:29 Date of Onset of Symptoms: 01/11/23 Chief complaint: N/V Narrative: 27-year-old female with no significant past medical history drank 2 glasses of cider over the weekend at dinner.? For the past 48 hours she is experienced sharp epigastric pain which was nonradiating.? It was associated with intractable nausea and vomiting.? Pain was moderate?severe. ? Please note she is currently menstruating and is sexually active. In the emergency room she was hemodynamically stable with mild tachycardia.? Abdominal exam was nonsurgical.? ? Labs are significant for WBC 10.0, 80% neutrophils, potassium 3.2, ALT 35, normal bilirubin with alkaline phosphatase and lipase.? Urinalysis 3+ ketones with occult blood and trace protein.? There was also 1+ leukocyte Estrace few bacteria.? But this was not associated with suprapubic or pelvic pain.? Urine toxicology was significant for marijuana.? Serum ketones was 0.9. CT of the abdomen pelvis has mild segmental wall thickening of the transverse and descending colon suggestive of mild colitis.? There was no evidence of p yelonephritis or gallbladder pathology. She was given multiple doses of Zofran, Ativan, and IV fluids but her nausea and vomiting returned with any fluid challenge.? She is currently feeling much bet ter and she will be admitted for further observation. She was given a dose of Rocephin and azithromycin to cover any STDs.? She did a self administered swab in the ER which is send out. 01/13 AM: symptoms have all improved. No further nausea. No recent diarrhea, denies fevers or chills. Denies a H/O exceptional alcohol use. PFSH Medical History? Acute blood loss anemia Contraception management Pre-eclampsia Surgical History? Previous section (~11/08/19) [place] teeth removed (~2011) Family History? Father Hypertension Myocardial infarction HyperlipidemiaMother Pre-eclampsiaGrandfather?? Pancreatic adenoma CancerGrandmother ?? No problems noted. Grandfather? No problems noted. Grandmother? No problems noted. Social History? marital status:? number of children:? 1 household members:? spouse, family and children lives independently:? Yes housing:? house pets and animals:? 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 No special ryder needs:? No travel history:? recent (domestic only) seatbelt use:? always water heater temp set < 120 deg:? Yes working smoke detector in home:? Yes fire extinguisher in home:? Yes carbon monox detector in home:? Yes firearms in home:? Yes firearms unloaded and locked: Yes do you feel safe at home:? Yes Smoking Status:? Never smoker second hand exposure:? No alcohol intake:? former substance use type:? does not use during the past year weight has:? remained stable well-balanced diet:? daily or most days daily servings fruits/veg:? 2-4 caffeine:? Yes (Aware of 200mg limit) Type(s) of exercise:? aerobic, resistance training and yoga frequency:? daily Meds Home Medications and Allergies Home Medications ?Medication ?Instructions ?Recorded ?Confirmed ?Type No Known Home Medications ? 01/13/23 01/13/23 History Allergies Allergy/AdvReac Type Severity Reaction Status Date / Time No Known Drug Allergies Allergy ? ? Verified 01/12/23 19:03 Review of Systems Review of Systems Narrative: All else reviewed and otherwise unremarkable except as noted on the H&P. Denies pain, dyspnea, constipation or other concerns. Exam Vital Signs (past 8 hours): - ? 01/13/2303:00 01/14/2308:41 Temperature 98.2 F 97.8 F Pulse Rate 50 L 72 Respiratory Rate 16 17 Blood Pressure 110/57 L 138/73 Pulse Oximetry 98 99 Oxygen Flow Rate 0 0 Oxygen Delivery Method? Room Air? Oxygen Flow Rate? 0 ? Narrative Exam Narrative: The patient is awake and in NAD. Normal speech and mentation. Normal judgement, and calm affect. Head is atraumatic and EOMI. Anicteric sclera. Oropharynx is moist. Neck is supple and trachea is midline. Lungs are CTA, with normal rate and effort. Heart is RRR, without murmur, gallop, or rub. Abdomen is soft, NT and ND. Extremities are free of edema. Good arm pulses. Good leg pulses. Skin is free of rash or lesions. Joints are free of swelling or deformity. Back with normal ROM. Objective Imaging CT scan - abdomen: ? ? ? Radiologist's impression: IMPRESSION:? ? 1. No definite CT evidence of pyelonephritis.? Specifically, no evidence of a striated nephrogram, perinephric stranding, or perinephric fluid collections. ? 2. No hydronephrosis. ? 3. Mild segmental wall thickening of the transverse and descending colon suggestive of a mild colitis.? ? US - abdomen: ? ? ? Radiologist's impression: 1. Hepatomegaly.? Increased hepatic echogenicity noted possibly related to hepatic steatosis but other sources of hepatocellular disease or hepatic cirrhosis cannot be excluded.? Recommend clinical correlation. 2. The gallbladder is within normal limits.? No gallstones or gallbladder wall thickening.? No intra or extrahepatic biliary ductal dilatation. ? Labs 01/12/23 20:13? 01/13/23 02:38? Labs: Laboratory Results - last 24 hr ? 01/12/23 01/12/23 01/12/23 ? 20:13 20:13 21:05 WBC ?10.0 ? ? RBC ?5.03 ? ? Hgb ?14.0 ? ? Hct ?42.5 ? ? MCV ?84.4 ? ? MCH ?27.8 ? ? MCHC ?32.9 ? ? RDW ?14.5 ? ? Plt Count ?389 ? ? Neut % (Auto) ?80.9 H ? ? Lymph % (Auto) ?11.7 L ? ? [place] % (Auto) ?6.2 ? ? Eos % (Auto) ?0.5 L ? ? Baso % (Auto) ?0.7 ? ? Neut # (Auto) ?8100 HB ? ? Lymph # (Auto) ?1200 ? ? [place] # (Auto) ?600 ? ? Eos # (Auto) ?0 ? ? Baso # (Auto) ?100 ? ? Sodium ? ?137 ? Potassium ? ?3.2 L ? Chloride ? ?101 ? Carbon Dioxide ? ?22 ? BUN ? ?16 ? Creatinine ? ?0.70C ? Estimated GFR ? ?> 60 ? D BUN/Creatinine Ratio ? ?22.9 H ? Glucose ? ?108 H ? Calcium ? ?9.4 ? Total Bilirubin ? ?0.6 ? AST ? ?33 ? ALT ? ?35 H ? Alkaline Phosphatase ? ?86 ? Total Protein ? ?8.1 ? Albumin ? ?4.7 ? Globulin ? ?3.4 ? Albumin/Globulin Ratio ? ?1.4 ? Lipase ? ?118 ? Urine Color ? ? ?Red Urine Appearance ? ? ?Cloudy Urine pH ? ? ?5.5 Ur Specific [place] ? ? ?1.015 Urine Protein ? ? ?Trace H Urine Glucose (UA) ? ? ?Negative Urine Ketones ? ? ?3+ H Urine Occult Blood ? ? ?3+ H Urine Nitrate ? ? ?Negative Urine Bilirubin ? ? ?Negative Urine Urobilinogen ? ? ?0.2 Ur Leukocyte Esterase ? ? ?1+ H Urine RBC ? ? ?>100/hpf H Urine WBC ? ? ?1-5/hpf Ur Squamous Epith Cells ? ? ?1-5 /hpf Urine Bacteria ? ? ?Few (2-10) H Ur Culture Indicated?Specimen cultured U Opiates 300ng/mL cut ? ? ? Ur Oxycodone Screen ? ? ? Urine Methadone Screen ? ? ? Ur Barbiturates Screen ? ? ? U Tricyclic Antidepress ? ? ? Ur Phencyclidine Scrn ? ? ? Ur Amphetamines Screen ? ? ? U Methamphetamines Scrn ? ? ? Ur MDMA Scrn (Ecstasy) ? ? ? U Benzodiazepines Scrn ? ? ? Urine Cocaine Screen ? ? ? U Marijuana (THC) Screen ? ? ? Ethyl Alcohol ? ? ? Ketones ? 01/12/23 01/13/23 01/13/23 ? 21:05 02:38 02:38 WBC ? ? ? RBC ? ? ? Hgb ? ? ? Hct ? ? ? MCV ? ? ? MCH ? ? ? MCHC ? ? ? RDW ? ? ? Plt Count ? ? ? Neut % (Auto) ? ? ? Lymph % (Auto) ? ? ? [place] % (Auto) ? ? ? Eos % (Auto) ? ? ? Baso % (Auto) ? ? ? Neut # (Auto) ? ? ? Lymph # (Auto) ? ? ? [place] # (Auto) ? ? ? Eos # (Auto) ? ? ? Baso # (Auto) ? ? ? Sodium ? ? ?138 Potassium ? ? ?3.9 Chloride ? ? ?107 Carbon Dioxide ? ? ?20 L BUN ? ? ?12 Creatinine ? ? ?0.66 Estimated GFR ? ? ?> 60 BUN/Creatinine Ratio ? ? ?18.2 Glucose ? ? ?112 H Calcium ? ? ?8.9 Total Bilirubin ? ? ?0.6 AST ? ? ?44 H ALT ? ? ?33 Alkaline Phosphatase ? ?B ?70 Total Protein ? ? ?7.3 Albumin ? ? ?4.2 Globulin ? ? ?3.1 Albumin/Globulin Ratio ? ? ?1.4 Lipase ? ? ? Urine Color ? ? ? Urine Appearance ? ? ? Urine pH ? ? ? Ur Specific [place] ? ? ? Urine Protein ? ? ? Urine Glucose (UA) ? ? ? Urine Ketones ? ? ? Urine Occult Blood ? ? ? Urine Nitrate ? ? ? Urine Bilirubin ? ? ? Urine Urobilinogen ? ? ? Ur Leukocyte Esterase ? ? ? Urine RBC ? ? ? Urine WBC ? ? ? Ur Squamous Epith Cells ? ? ? Urine Bacteria ? ? ? Ur Culture Indicated? U Opiates 300ng/mL cut ?Negative ? ? Ur Oxycodone Screen ?Negative ? ? Urine Methadone Screen ?Negative ? ? Ur Barbiturates Screen ?Negative ? ? U Tricyclic Antidepress ?Negative ? ? Ur Phencyclidine Scrn ?Negative ? ? Ur Amphetamines Screen ?Negative ? ? U Methamphetamines Scrn ?Negative ? ? Ur MDMA Scrn (Ecstasy) ?Negative ? ? U Benzodiazepines Scrn ?Negative ? ? Urine Cocaine Screen ?Negative ? ? U Marijuana (THC) Screen ?Positive H ? ? Ethyl Alcohol ? ?< 10 ? Ketones ? ?0.90 H ? Assessment & Plan Assessment & Plan narrative: 27-year-old female is admitted with epigastric pain, dehydration, nausea/vomiting, nonspecific colitis, mild hypokalemia, mild starvation ketosis, and no extreme positive for marijuana 1. Epigastric pain, POA and improved. 2. Nausea/vomiting X 48 hours, POA and resolved. 3. Nonspecific colitis, POA and improved. 4. Dehydration, POA and active. 5. Starvation ketosis, POA and active. 6. Incidental marijuana use-- cyclic vomiting is part of differential, POA and stable. 7. Hypokalemia, POA and improved. 8. Abnormal UA, POA. Plan of Treatment: Discharge home with close PCP follow up. No antibiotics for now. Urine culture Discharge Plan Discharge Plan Patient Disposition: Home Nursing Discharge Comment: Make sure you're keeping your self hydrated. Discharge orders & Medications Prescriptions: No Action No Known Home Medications Medication counseling provided by Pharmacist: No Follow up/Referrals: Doctor Walter MD [Primary Care Provider] - Discharge Health Status Multidrug resistant organism: No MDRO Diet/Activity/Treatments Diet: Diet as Tolerated Skin/Wound/Dressing Care Report to your healthcare provider any signs of infection, such as:: chills, fever and increased pain Visit Report/Discharge Packet Stand Alone Forms: Patient Portal/API Discharge Data Primary Care Provider: Doctor Jose Angel Attending Provider: Goran Lenz Admit Date/Time: 01/13/23 02:21 Quality VTE Deep Vein Thrombosis/Pulmonary Embolism Present on Admission: No
--- NOTE | 2023-01-16 08:13 | PC.NURSE ---
Late Entry: azithromycin infusion initiated 01/13 at 0236 complete at 0327.
== END 2023-01-13 15:30 | disposition home or self-care (01) ==
LOC: ED 01-13 00:21 → AC 01-13 02:23
PROVIDERS: Admitting Provider Specialist; Emergency Provider Emergency Medicine; Referring Provider Emergency Medicine; Visit Provider Specialist
DX: R11.2 Nausea with vomiting, unspecified (principal); E86.0 Dehydration; R10.13 Epigastric pain; E88.89 Other specified metabolic disorders; E87.6 Hypokalemia
CPT/HCPCS: 36415; 74177; 76705; 80053; 80305; 80320; 81001; 81003; 81025; 82009; 83690; 85025; 87070; 87086; 87205; 87210; 93005; 96361; 96365; 96367; 96375; 96376; 99284; G0378; J0696; J2060; J2405; J2765; Q9967